=== PATIENT | female | born 1950 | race African-American/Black ===

== ENCOUNTER 2017-06-11 15:30 | Outpatient (POV) | payer OTHER, SELFPAY | END 2017-06-11 17:16 | disposition home or self-care (01) | PROVIDERS: Visit Provider Podiatrist | DX: M20.42 Other hammer toe(s) (acquired), left foot (principal); M20.41 Other hammer toe(s) (acquired), right foot; B35.1 Tinea unguium; M21.612 Bunion of left foot; M21.611 Bunion of right foot; L84 Corns and callosities | CPT/HCPCS: 99203; 11055; 73630 ==

== ENCOUNTER → 2017-10-08 14:05 | Outpatient (CLI) | payer MEDICARE, OTHER, SELFPAY ==
--- NOTE | 2017-10-08 14:31 | CT_ITS ---
LDCT EXAM: CT LUNG LOW DOSE WO CONTRAST COMPARISON: None HISTORY: Smoker currently. One pack per day for 30 years equal 30 pack-year history smoking. Patient asymptomatic. ORDERING PHYSICIAN: Jose G Campbell MD PATIENT AGE: 66 years TECHNIQUE: The exam was performed on a GE Light Speed [address] scanner using 3.0 mGy CTDI. A low dose helical CT CHEST was performed on a multi-detector scanner. All CT scans at the facility use one or more dose reduction, viz: automated exposure control; ma/kV adjustment per patient size (including targeted exams where dose is matched to indication; i.e. head); or iterative reconstruction technique. The LDCT was performed in a facility that meets the criteria for the screening program. Data regarding this exam was submitted to ACR which is an approved registry. The order for this exam indicates that it came as a result of a lung cancer screening counseling shard decision-making visit that included all the elements required of such a visit including smoking cessation. The radiologist interpreting this exam meets the CMS criteria for the LDCT lung cancer screening program. The exam is reported using the Lung-RADS classification scale and reported to the ACR registry. NOTE: This study was performed for the specific purposes of lung cancer screening and is not an alternative to diagnostic chest CT. RADIATION DOSE: CTDI vol(CT dose Index-volume) = 2.9mG DLP (Dose Length Product) = 91.32 mGcm FINDINGS: No Suspicious Lung Nodules. No areas of significant concern Indeterminate/Non-actionable Nodules(Category2): . RLL: There is a 3.6 mm nodule at the superior segment RLL axial slice 34, sagittal 22qq.. On the corresponding coronal slice 39 at has a relatively linear appearance which may reflect scarring. This most likely benign one year follow-up would be adequate. RUL. Tiny barely evident benign fissure nodule axial slice 37-sagittal 28 along the superior margin of minor fissure. Not of concern Left lung apex: 4.5 mm length x 2 mm fissure nodule extending from the anterior aspect of the major fissure superiorly at left apex. Can be followed one year LUNG PARENCHYMA Emphysema: Mild centrilobular emphysematous changes small bleb right middle lobe. No significant Airways disease: . . Minimal linear scarring & fibrotic changes at the inferior RML just anterior to the major fissure . OTHER ANATOMIC REGIONS Calcified mediastinal lymph nodes reflecting over elements disease. No significant hilar nor mediastinal adenopathy enlarged lymph nodes evident. Scattered small nodes are present in the mediastinum and amisha Pleura: Unremarkable Cardiac: Coronary artery disease calcification with possible stent at circumflex. Previous median sternotomy,. CABG Heart normal upper normal size. No pericardial effusion. Aorta normal caliber.. OTHER FINDINGS:. Generous left adrenal borderline enlargement. IMPRESSION:========= 1. No suspicious lung masses or lesions. No pneumonia. 2. Developing mild Emphysematous changes noted 3. Lung RADS Category: 2. Unimpressive small most likely benign nodular densities bilaterally. Follow-up in one year would be adequate 2. Other findings: CAD. CABG. [ Plump borderline enlarged left adrenal gland noted. RECOMMENDATIONS:======== 12 monthd LDCT follow-up
--- NOTE | 2017-10-08 14:31 | MM_ITS ---
MM Dig screening mamm BI w/CAD CAD Screening ORDERING PHYSICIAN : Jose G Campbell MD PATIENT AGE: 66 years GENDER: Female COMPARISON: Previous mammograms: April 2015, June 2012. INDICATION: Routine screening no hormones no new complaints Family history. Sister with breast cancer postmenopausal. Maternal cousin with breast cancer TECHNIQUE : Standard CC and MLO images were obtained. R2 CAD reviewed. FINDINGS: Moderately dense breast bilaterally but fairly homogeneous parenchymal pattern, with no significant findings. Prior studies are helpful and supportive stable breasts bilateral. CAD computer review highlights no new areas concern either.. IMPRESSION: ...... Stable bilateral mammogram with no significant new findings Moderately dense breast. BI-RADS Category: 1 Negative RECOMMENDED FOLLOW-UP: 1YR - 1 YEAR FOLLOW-UP (A letter has been sent to the patient regarding results of the study.)
--- NOTE | 2017-10-08 14:31 | XR_ITS ---
XR DEXA axial skeleton COMPARISON: None HISTORY: Patient is postmenopausal, current smoker, hypertensive. TECHNIQUE: DEXA scanning lumbar spine and bilateral hips FINDINGS: The areas BMD lumbar spine L1-L4 is 1.154 g/sq cm the T score -0.2. The total BMD left hip is 0.894 g centimeters square with a T score of -0.9 in the left femoral neck is 0.934 g centimeters square with a T score of -0.7. The total BMD right hip is T score of -0.4 in the right femoral neck is 0.872 g centimeters square with a T score of -1.2. IMPRESSION: Normal T score lumbar spine and left hip, mild osteopenia right hip. Consider follow-up study in approximately 2 years
== END ==
PROVIDERS: Family Provider Family Medicine; PCP Family Medicine; Visit Provider Family Medicine
DX: Z87.891 Personal history of nicotine dependence (principal); Z12.2 Encounter for screening for malignant neoplasm of respiratory organs; Z13.820 Encounter for screening for osteoporosis; M85.89 Other specified disorders of bone density and structure, multiple sites; Z12.31 Encounter for screening mammogram for malignant neoplasm of breast; N60.19 Diffuse cystic mastopathy of unspecified breast
CPT/HCPCS: 77067; 77080

== ENCOUNTER 2018-09-21 11:06 | Observation (INO) ==
--- NOTE | 2018-09-21 12:07 | Emergency Department Note ---
ED Disposition Clinical Impression: Hypertensive urgency, Non-compliance, Elevated troponin, Dizziness, nonspecific Disposition: Still a Patient Condition on Discharge: Fair Referrals: Jose G Campbell MD [Primary Care Provider] - - Critical Care Critical Care Time: No Attestation: On 09/21/18, the high probability of a clinically significant, sudden or life threatening deterioration of the following system(s) required my full and direct attention, intervention and personal management. The time I documented below is in addition to time spent performing reported procedures but includes the foll owing listed in this critical care notation. Medical Decision Making - Medical Records Medical records reviewed: Yes: I reviewed the patient's medical records. - Cesario Inquiry Pt receiving controlled substance: No Cesario was queried for this patient: No Vital Signs: 09/21/18 11:19 09/21/18 11:28 09/21/18 11:45 Temperature 97.5 F L Temperature Source Oral Pulse Rate [Orthostatic Lying Right] 78 Pulse Rate [Orthostatic Sitting Right] 79 Pulse Rate [Right Radial] 78 79 Respiratory Rate 18 Blood Pressure [Orthostatic Lying Right Arm] 206/109 H Blood Pressure [Orthostatic Sitting Right Arm] 205/114 H Blood Pressure [Right Arm] 206/114 H 214/115 H Blood Pressure Mean [Right Arm] 144 148 Blood Pressure Source [Right Arm] Automatic Cuff Automatic Cuff Blood Pressure Position [Right Arm] Sitting Sitting 02 Sat by Pulse Oximetry 100 96 Oxygen Delivery Method Room Air 09/21/18 12:09 09/21/18 12:41 09/21/18 13:00 Temperature Temperature Source Pulse Rate [Orthostatic Lying Right] Pulse Rate [Orthostatic Sitting Right] Pulse Rate [Right Radial] 68 56 L 60 Respiratory Rate 18 18 18 Blood Pressure [Orthostatic Lying Right Arm] Blood Pressure [Orthostatic Sitting Right Arm] Blood Pressure [Right Arm] 195/103 H 187/107 H 170/94 H Blood Pressure Mean [Right Arm] 133 133 119 Blood Pressure Source [Right Arm] Automatic Cuff Automatic Cuff Automatic Cuff Blood Pressure Position [Right Arm] Sitting Sitting Sitting 02 Sat by Pulse Oximetry 98 99 98 Oxygen Delivery Method Room Air Room Air Room Air 09/21/18 13:31 Temperature Temperature Source Pulse Rate [Orthostatic Lying Right] Pulse Rate [Orthostatic Sitting Right] Pulse Rate [Right Radial] 62 Respiratory Rate Blood Pressure [Orthostatic Lying Right Arm] Blood Pressure [Orthostatic Sitting Right Arm] Blood Pressure [Right Arm] 183/93 H Blood Pressure Mean [Right Arm] 123 Blood Pressure Source [Right Arm] Automatic Cuff Blood Pressure Position [Right Arm] Sitting 02 Sat by Pulse Oximetry 99 Oxygen Delivery Method Room Air - Lab Data Lab Results 09/21/18 12:35: WBC 5.2, RBC 5.37, Hgb 15.1, Hct 45.6, MCV 85.0, MCH 28.1, MCHC 33.1, RDW 14.0, Plt Count 250, MPV 7.4, Neut % (Auto) 52.9, Lymph % (Auto) 39.7, Metcalfe % (Auto) 4.1, Eos % (Auto) 2.6, Baso % (Auto) 0.7, Neut # (Auto) 2.8, Lymph # (Auto) 2.1, Metcalfe # (Auto) 0.2, Eos # (Auto) 0.1, Baso # (Auto) 0.0 09/21/18 12:35: PT 10.3, INR 1.00, APTT 26.4 09/21/18 12:35: Sodium 143, Potassium 3.4 L, Chloride 107, Carbon Dioxide 27, Anion Gap 12.4, BUN 13, Creatinine 0.80, Estimated Creat Clear 60, Estimated GFR 72, Est GFR ( Amer) 87, Glucose 103, Calcium 9.1, Total Bilirubin 0.5, AST 14 L, ALT 20, Alkaline Phosphatase 74, Troponin I 0.10 H, Total Protein 7.0, Albumin 3.5, Globulin 3.5 H, Albumin/Globulin Ratio 1.0 L Result diagrams: 09/21/18 12:35 09/21/18 12:35 Orders (Tests/Meds): ED MEDICATIONS Generic Name Dose Route Start Last Admin Trade Name Freq PRN Reason Stop Dose Admin Hydrochlorothiazide 12.5 mg 09/21/18 12:15 09/21/18 12:28 Hctz 12.5mg Capsule PO 10/21/18 12:14 12.5 mg DAILY NATALIA Administration ORDERS Category Date Time Status EKG Request [ECG Request by /Wilfredo] Stat Y 09/21/18 12:02 Ordered - CT Data CT Scan: Head Time Received: 12:12 Preliminary Findings: Abnormal Findings Narrative: IMPRESSION: Probable acute or acute and chronic inflammatory change left maxillary sinus, otherwise findings of mild age-appropriate cortical atrophy noted. I see no acute intracranial pathology. - ECG Data Tracing #1 Normal sinus rhythm 71/min, normal P wave and QRS normal ST segment nonspecific T wave changes in lead V6, no acute findings ECG initial impression date: 09/21/18 ECG initial impression time: 10:25 Medical Decision Narrative: IMPRESSION: Probable acute or acute and chronic inflammatory change left maxillary sinus, otherwise findings of mild age-appropriate cortical atrophy noted. I see no acute intracranial pathology .The SBP was reduced to 170 mmhg , patient felt better, surprisingly her troponin 0.10 , she had no chest pain, soa or palpiattion, her troponin was elevated in the past 0.07 . I spoke with the patient who was agreeable for admission will resume her baby aspirin and hold Lovenox to avoid brain he morrhage. I discussed with Dr Green who agreed to admit on behalf of Dr Campbell. Dizzy HPI - General Chief Complaint: Weakness Stated Complaint: off balance Time Seen by Provider: 09/21/18 11:25 Mode of Arrival: Ambulatory Source of Information: Patient, Relative Limitations: No Limitations Description of Symptoms (Recalled from ER Triage Doc. by RN): Pt reports she woke up feeling "off balance" intermittently this morning and jaky legs feeling weak, pt reports she feels "off balance" when she moves her head up and down. Pt reports she has had some feeling of R ear fullness intermittently this morning also. Pt denies headache, nausea, and pain. - History of Present Illness HPI Narrative: 67 years old -Finnish female smoker with history of CAD, s/p CABG, hypertension on hydrochlorothiazide and Coreg 12.5 mg twice daily. She has been out of her hydrochlorothiazide for the past 3-4 days. Today she woke up at 8:30 AM, while in the bathroom bending forward she felt dizzy when she attempted to stand she felt weak in both lower extremities. She became concerned and arrived to the ED with a systolic blood pressure of 195/103 mmHg manually, she denies having chest pain shortness of breath palpitations, she denies having weakness numbness tingling involving the upper extremities or the lower extremities as the symptoms has resolved.She denies having nausea vomiting diarrhea she denies having dysuria hematuria or frequency. Her dizziness is improving. She has not taking her Coreg this morning. MD complaint: dizziness Onset (ago): hour(s) Time: 08:30 Timing: sudden onset Description: lightheadedness History of similar episodes: No History of trauma: No Severity: mild Relieving factors: remaining still Exacerbating factors: movement Associated symptoms: weakness, other - Related Data Home Medications Medication Instructions Recorded Confirmed Aspirin [Aspir 81] 81 mg PO DAILY 10/08/17 09/21/18 Carvedilol [Carvedilol 12.5mg Tab] 12.5 mg PO BID 10/08/17 09/21/18 hydroCHLOROthiazide 12.5 mg PO DAILY 10/08/17 09/21/18 [Hydrochlorothiazide 12.5mg Tab] Pravastatin Sodium 80 mg PO DAILY 02/19/18 09/21/18 Losartan Potassium 50 mg PO DAILY 02/20/18 09/21/18 Vit B12/Folic Acid/B6/Aa15 1 each PO DAILY 09/10/18 09/21/18 [Glycotrol Capsule] Vit D3-Vit K/Berberine/Hops 1 each PO DAILY 09/10/18 09/21/18 [Ostera Tablet] Allergies Allergy/AdvReac Type Severity Reaction Status Date / Time No Known Allergies Allergy Verified 06/29/18 19:40 [facility] History - Hepatitis A Screen Drug use history?: No High risk sexual behaviors?: No History of sexually transmitted infection?: No Currently employed?: No Childcare worker?: No Do you have indoor plumbing?: Yes Do you have electricity?: Yes Attestation statement:: This patient has been screened for Hepatitis A risk factors. I have reviewed the patient's past medical history: Yes Medical History: Reports:: Coronary Artery Disease, Hyperlipidemia, Hypertension, Myocardial Infarction (2009) Denies:: Diabetes Mellitus Type 1, Diabetes Mellitus Type 2, Internal Pacemaker, Lung Disease, Seizures Other Surgeries: Yes: CABG, Cardiac Catheterization, Cardiac Surgery, Coronary Stent, Open Heart Surgery, Tubal Ligation. No: Pacemaker Amputation: No Fractures: No - Social History Smoking Status: Current every day smoker Tobacco Type: cigarettes # Packs/Day (cigarettes): 1 Alcohol Intake: never Occupational Status: employed - Psychiatric History Expresses thoughts of harming self/others: None Suicide Plan Description: No Plan ROS Obtained: Yes All systems reviewed & no additional complaints Physical Exam - General General appearance: alert, in no apparent distress - Head Head exam: atraumatic, normocephalic, normal inspection, other (Patient had symmetrical face. No speech difficulty. ) - Eye Eye exam: Present: normal appearance, PERRL, EOMI. Absent: scleral icterus, jaundice, nystagmus - ENT ENT exam: Present: normal exam, normal oropharynx, mucous membranes moist, TM's normal bilaterally, normal external ear exam - Neck Neck exam: Present: normal inspection, full ROM, trachea midline. Absent: meningismus, lymphadenopathy - Chest Chest inspection: Present: normal inspection, symmetric chest wall rise. Absent: tenderness - Respiratory Respiratory exam: Present: normal lung sounds bilaterally. Absent: respiratory distress - Cardiovascular Cardiovascular exam: Present: regular rate, normal rhythm. Absent: JVD - Abdominal Exam Abdominal exam: Present: soft, normal bowel sounds. Absent: distention, tenderness, guarding, rebound, rigidity - External exam: Present: normal external exam - Extremities Exam Extremities exam: Present: normal inspection, full ROM, normal capillary refill. Absent: tenderness, pedal edema, joint swelling, calf tenderness - Back Exam Back exam: Present: normal inspection. Absent: tenderness, CVA tenderness (R), CVA tenderness (L) - Neurological Exam Neurological exam: Present: alert, oriented X3, CN II-XII intact, normal gait, motor sensory deficit, reflexes normal, other (The patient had no nystagmus, symmetrical face, no dysarthria or dysphonia, intact finger to nose and heel to holloway test, negative rombergism, walked tandem, motor power in the lower extremity was 5/5, Babinski was upgoing, no focal deficits. ) - Psychiatric Psychiatric exam: Present: normal affect, normal mood - Skin Skin exam: Present: warm, dry, intact, normal color - Lymphatic Lymphatic Findings: no adenopathy
[2018-09-21 12:42] LABS: Basophils % 0.7 % (0.1-2.0); Eosinophils # 0.1 K/mm3 (0.0-0.4); Eosinophils % 2.6 % (0.1-12.0); Hematocrit 45.6 % (37.0-47.0); Hemoglobin 15.1 g/dL (12.2-16.2); Lymphocytes # 2.1 K/mm3 (0.7-4.5); Lymphocytes % 39.7 % (10-50); Mean Corpuscular HGB Conc 33.1 g/dL (31.8-35.4); Mean Corpuscular Hemoglobin 28.1 pg (27.0-31.2); Mean Platelet Volume 7.4 fl (7.4-10.4); Monocytes # 0.2 K/mm3 (0.1-1.0); Monocytes % 4.1 % (1.7-9.3); Neutrophils # 2.8 K/mm3 (1.8-7.8); Neutrophils % 52.9 % (37.0-80.0); Platelet Count 250 K/mm3 (142-424); Red Blood Count 5.37 M/mm3 (4.20-5.40); White Blood Count 5.2 K/mm3 (4.8-10.8)
[2018-09-21 12:52] LABS: Activated Partial Thrombo Time 26.4 seconds (23.6-34.0); Prothrombin Time 10.3 seconds (9.4-11.8)
[2018-09-21 12:57] LABS: Albumin Level 3.5 gm/dL (3.4-5.0); Anion Gap 12.4 mEq/L (5-15); Bilirubin,Total 0.5 mg/dL (0.2-1.0); Calcium 9.1 mg/dL (8.5-10.1); Globulin 3.5 gm/dl (1.3-3.2); Potassium 3.4 mmoL/L (3.5-5.1)
--- NOTE | 2018-09-21 14:52 | Pharmacy Consult Notes ---
[facility] Pharmacy VTE Monitoring - Patient Demographics Admission date: 09/21/18 Report Date: 09/21/18 Time: 14:52 Allergies/Adverse Reactions: Patient Allergies No Known Allergies Allergy (Verified 06/29/18 19:40) Height: 1.6 m Weight: 68.039 kg Patient Problems: Current Active Problems Hypertensive urgency (Acute) Non-compliance (Acute) Elevated troponin (Acute) Dizziness, nonspecific (Acute) - VTE Risk Labs: VTE Related Lab Results Hgb 15.1 g/dL (12.2-16.2) 09/21/18 12:35 Hct 45.6 % (37.0-47.0) 09/21/18 12:35 Plt Count 250 K/mm3 (142-424) 09/21/18 12:35 PT 10.3 seconds (9.4-11.8) 09/21/18 12:35 INR 1.00 (0.9-1.1) 09/21/18 12:35 APTT 26.4 seconds (23.6-34.0) 09/21/18 12:35 BUN 13 mg/dL (7-18) 09/21/18 12:35 Creatinine 0.80 mg/dL (0.55-1.02) 09/21/18 12:35 Estimated Creat Clear 60 mL/min (50-200) 09/21/18 12:35 - Prophylaxis VTE Prophylaxis Ordered?: Yes Types of VTE Prophylaxis: TEDS Knee High Location of Applied Device: Bilateral Lower Extremeties - VTE Diagnosis Confirmed Treatment or plan recommended: Continue Current Treatment
--- NOTE | 2018-09-21 17:54 | History & Physical Report ---
*Admission Date: 09/21/18 *Chief complaint: Dizziness *History of present illness: Ms. Grider is a 67-year-old -[place] female with a history of hypertension, coronary artery disease, hyperlipidemia status post coronary artery bypass grafting and previous stents. She admits to noncompliance with taking her antihypertensive medications over the last several days and when she awoke this morning she felt dizzy which she describes as a lightheaded feeling and no true vertigo. This was associated with weakness in her legs. No complaints of chest pain, palpitations, shortness of breath or headache. She does note some sinus pressure. She presented to the emergency room with these complaints. She was immediately noted to be hypertensive. CT scan of the head showed only some chronic left maxillary sinusitis. Laboratory data showed normal CBC and electrolytes however her initial troponin was mildly elevated at 0.1. EKG showed no acute changes. She was given a dose of her carvedilol and hydrochlorothiazide in the emergency room and her blood pressure improved but has not returned to normal. Because of the borderline elevated troponin and persistent elevation of her blood pressure she has been admitted for further evaluation and treatment. At the time of my exam she states she is feeling somewhat better. Her dizziness has improved but not resolved. Leg weakness has resolved. She still notes some pressure in her sinuses. No chest pain or palpitations. [facility] History Medical History: Reports:: Coronary Artery Disease, Hyperlipidemia, Hypertension, Myocardial Infarction (2009) Denies:: Cancer, Diabetes Mellitus Type 1, Diabetes Mellitus Type 2, Internal Pacemaker, Lung Disease, MRSA, Seizures *Have you ever received a pneumonia vaccine?: Yes *Have you received a flu vaccine this season?: No Other Medical History: Reports: Sinus Problems Other Surgeries: Yes: CABG, Cardiac Catheterization, Cardiac Surgery, Coronary Stent, Open Heart Surgery, Tubal Ligation. No: Pacemaker Amputation: No Fractures: No - *Social History Educational Level: Attended College Smoking Status: Current some day smoker Tobacco Type: cigarettes # Packs/Day (cigarettes): 1 Alcohol Intake: never *Occupational Status:: employed Housing: house Household Members: children *Travel in the last 8 weeks: None - Psychiatric History Expresses thoughts of harming self/others: None Suicide Plan Description: No Plan Family Hx:: Cancer, Coronary Artery Disease, Diabetes, Heart Attack, Hyperlipidemia, Hypertension, Stroke Review of Systems - Constitutional Denies fatigue, Denies headache(s), Denies malaise - Eyes Denies blurry vision, Denies change in vision, Denies double vision - ENT Comments: negative except as noted in HPI - *Cardiovascular Comments: See HPI - *Respiratory Denies cough, Denies shortness of breath - *Gastrointestinal Denies abdominal pain, Denies heartburn, Denies nausea, Denies vomiting - *Genitourinary Denies painful urination - *Musculoskeletal Denies joint pain, Denies joint swelling - Integumentary/Breasts Denies rash - *Neurologic Comments: negative except as noted in HPI - Psychiatric Denies anxiety, Denies depression - Endocrine Denies cold intolerance, Denies excessive sweating - Hematologic/Lymphatic Denies easy bleeding Meds Home Medications Medication Instructions Recorded Confirmed Type Aspirin [Aspir 81] 81 mg PO DAILY 10/08/17 09/21/18 History Carvedilol [Carvedilol 12.5mg Tab] 12.5 mg PO BID 10/08/17 09/21/18 History hydroCHLOROthiazide 12.5 mg PO DAILY 10/08/17 09/21/18 History [Hydrochlorothiazide 12.5mg Tab] Pravastatin Sodium 80 mg PO DAILY 02/19/18 09/21/18 History Vit B12/Folic Acid/B6/Aa15 1 each PO DAILY 09/10/18 09/21/18 History [Glycotrol Capsule] Vit D3-Vit K/Berberine/Hops 1 each PO DAILY 09/10/18 09/21/18 History [Ostera Tablet] Losartan Potassium 50 mg PO DAILY 09/21/18 09/21/18 History Allergies Allergy/AdvReac Type Severity Reaction Status Date / Time No Known Allergies Allergy Verified 06/29/18 19:40 Exam Vital signs and Labs for Last 24 Hours: Temp Pulse Resp BP Pulse Ox 98.2 F 74 16 198/103 H 97 09/21/18 17:00 09/21/18 17:00 09/21/18 17:00 09/21/18 17:00 09/21/18 17:00 Laboratory Results - last 24 hr 09/21/18 12:35: WBC 5.2, RBC 5.37, Hgb 15.1, Hct 45.6, MCV 85.0, MCH 28.1, MCHC 33.1, RDW 14.0, Plt Count 250, MPV 7.4, Neut % (Auto) 52.9, Lymph % (Auto) 39.7, Steele % (Auto) 4.1, Eos % (Auto) 2.6, Baso % (Auto) 0.7, Neut # (Auto) 2.8, Lymph # (Auto) 2.1, Steele # (Auto) 0.2, Eos # (Auto) 0.1, Baso # (Auto) 0.0 09/21/18 12:35: PT 10.3, INR 1.00, APTT 26.4 09/21/18 12:35: Sodium 143, Potassium 3.4 L, Chloride 107, Carbon Dioxide 27, Anion Gap 12.4, BUN 13, Creatinine 0.80, Estimated Creat Clear 60, Estimated GFR 72, Est GFR ( Amer) 87, Glucose 103, Calcium 9.1, Total Bilirubin 0.5, AST 14 L, ALT 20, Alkaline Phosphatase 74, Troponin I 0.10 H, Total Protein 7.0, Albumin 3.5, Globulin 3.5 H, Albumin/Globulin Ratio 1.0 L 09/21/18 16:57: Troponin I 0.10 H I & O for Last 24 hours: Intake & Output 09/19/18 09/20/18 09/21/18 09/22/18 11:59 11:59 11:59 11:59 Intake Total 600 / 600 Balance 600 / 600 Weight 150 lb 147 lb 8 oz Narrative: She is sitting up in bed and appears in no acute distress. HEENT is unremarkable. Neck is supple with no masses, thyromegaly, or bruits. Chest with coarse breath sounds and scattered rhonchi. Heart is regular with no murmurs or ectopy. Abdomen is soft and nondistended with no unusual masses or tenderness. Extremities no edema. Assessment and Plan (1) Hypertensive urgency Current visit: Yes Status: Acute Category: Medical Code(s): I16.0 - Hypertensive urgency (2) Elevated troponin Current visit: Yes Status: Acute Category: Medical Code(s): R74.8 - Abnormal levels of other serum enzymes (3) Noncompliance with medication regimen Current visit: Yes Status: Acute Category: Medical Code(s): Z91.14 - Patient's other noncompliance with medication regimen (4) History of ASCVD Current visit: Yes Status: Acute Category: Medical Code(s): Z86.79 - Personal history of other diseases of the circulatory system (5) HBP (high blood pressure) Current visit: Yes Status: Acute Category: Medical Code(s): I10 - Essential (primary) hypertension (6) Hyperlipemia Current visit: Yes Status: Acute Category: Medical Code(s): E78.5 - Hyperlipidemia, unspecified (7) Tobacco abuse disorder Current visit: Yes Status: Acute Category: Medical Code(s): Z72.0 - Tobacco use - Assessment and plan all Dx Assessment and Plan for all problems:: She is admitted for serial enzymes and monitoring of her BP. She is currently asymptomatic. Additional workup and treatment will be as indicated by her hospital course.
--- NOTE | 2018-09-22 08:22 | Progress Note ---
Internal Medicine - PN: Subj Interval history: She rested well last night and feels better this morning. She still complains of some sinus pressure. Her blood pressure has steadily come down to normal through the night. She denies dizziness or weakness in her legs. Exam Vital signs and Labs for Last 24 Hours: Temp Pulse Resp BP Pulse Ox 98.1 F 70 18 115/70 96 09/22/18 07:55 09/22/18 07:55 09/22/18 07:55 09/22/18 07:55 09/22/18 07:55 Laboratory Results - last 24 hr 09/21/18 12:35: WBC 5.2, RBC 5.37, Hgb 15.1, Hct 45.6, MCV 85.0, MCH 28.1, MCHC 33.1, RDW 14.0, Plt Count 250, MPV 7.4, Neut % (Auto) 52.9, Lymph % (Auto) 39.7, [place] % (Auto) 4.1, Eos % (Auto) 2.6, Baso % (Auto) 0.7, Neut # (Auto) 2.8, Lymph # (Auto) 2.1, [place] # (Auto) 0.2, Eos # (Auto) 0.1, Baso # (Auto) 0.0 09/21/18 12:35: PT 10.3, INR 1.00, APTT 26.4 09/21/18 12:35: Sodium 143, Potassium 3.4 L, Chloride 107, Carbon Dioxide 27, Anion Gap 12.4, BUN 13, Creatinine 0.80, Estimated Creat Clear 60, Estimated GFR 72, Est GFR ( Amer) 87, Glucose 103, Calcium 9.1, Total Bilirubin 0.5, AST 14 L, ALT 20, Alkaline Phosphatase 74, Troponin I 0.10 H, Total Protein 7.0, Albumin 3.5, Globulin 3.5 H, Albumin/Globulin Ratio 1.0 L 09/21/18 16:57: Troponin I 0.10 H 09/21/18 23:00: Troponin I 0.09 H I & O for Last 24 hours: Intake & Output 09/19/18 09/20/18 09/21/18 09/22/18 11:59 11:59 11:59 11:59 Intake Total 2580 / 2580 Balance 2580 / 2580 Weight 150 lb 147 lb 8 oz Narrative: She is alert and oriented and in no distress. Chest reveals coarse breath sounds with scattered rhonchi. Heart is regular with no ectopy. Extremities no edema. Assessment and Plan (1) Hypertensive urgency Status: Acute Category: Medical Code(s): I16.0 - Hypertensive urgency (2) Elevated troponin Status: Acute Category: Medical Code(s): R74.8 - Abnormal levels of other serum enzymes (3) Noncompliance with medication regimen Status: Acute Category: Medical Code(s): Z91.14 - Patient's other noncompliance with medication regimen (4) History of ASCVD Status: Acute Category: Medical Code(s): Z86.79 - Personal history of other diseases of the circulatory system (5) HBP (high blood pressure) Status: Acute Category: Medical Code(s): I10 - Essential (primary) hypertension (6) Hyperlipemia Status: Acute Category: Medical Code(s): E78.5 - Hyperlipidemia, unspecified (7) Tobacco abuse disorder Status: Acute Category: Medical Code(s): Z72.0 - Tobacco use - Assessment and plan all Dx Assessment and Plan for all problems:: Blood pressure has normalized with resumption of her maintenance medications. She is stable for discharge home. She has prescriptions at home and compliance is reinforced. She will follow-up for recheck in 3-5 days.
--- NOTE | 2018-09-22 22:42 | Discharge Summary ---
General - General Admission date:: 09/21/18 Discharge date: 09/22/18 HPI HPI: Ms. Grider is a 67-year-old -[place] female with a history of hypertension, coronary artery disease, hyperlipidemia status post coronary artery bypass grafting and previous stents. She admits to noncompliance with taking her antihypertensive medications over the last several days and when she awoke this morning she felt dizzy which she describes as a lightheaded feeling and no true vertigo. This was associated with weakness in her legs. No complaints of chest pain, palpitations, shortness of breath or headache. She does note some sinus pressure. She presented to the emergency room with these complaints. She was immediately noted to be hypertensive. CT scan of the head showed only some chronic left maxillary sinusitis. Laboratory data showed normal CBC and electrolytes however her initial troponin was mildly elevated at 0.1. EKG showed no acute changes. She was given a dose of her carvedilol and hydrochlorothiazide in the emergency room and her blood pressure improved but has not returned to normal. Because of the borderline elevated troponin and persistent elevation of her blood pressure she has been admitted for further evaluation and treatment. At the time of my exam she states she is feeling somewhat better. Her dizziness has improved but not resolved. Leg weakness has resolved. She still notes some pressure in her sinuses. No chest pain or palpitations. Hospital Course Hospital Course: The patient was admitted for serial enzymes and monitoring of her blood pressure. She was asymptomatic by the time she was evaluated by Dr. Green. The patient rested well and felt much better by the next day. She still complained of some sinus pressure. Her blood pressure steadily came down to normal throughout the night and she denied any dizziness or weakness in her legs. Her troponin did decrease. She was stable to be discharged home. She had prescriptions at home and compliance was reinforced. She will follow-up in the office for recheck in 3-5 days. Objective Vital signs: Temp Pulse Resp BP Pulse Ox 98.1 F 70 18 115/70 96 09/22/18 07:55 09/22/18 07:55 09/22/18 07:55 09/22/18 07:55 09/22/18 07:55 Narrative: She is sitting up in bed and appears in no acute distress. HEENT is unremarkable. Neck is supple with no masses, thyromegaly, or bruits. Chest with coarse breath sounds and scattered rhonchi. Heart is regular with no murmurs or ectopy. Abdomen is soft and nondistended with no unusual masses or tenderness. Extremities no edema. Results Labs on day of discharge: Labs from last 24 hours 09/21/18 23:00 Troponin I 0.09 H DS: Diagnosis - Discharge Diagnosis (1) Hypertensive urgency Status: Acute (2) Elevated troponin Status: Acute (3) Noncompliance with medication regimen Status: Acute (4) History of ASCVD Status: Acute (5) HBP (high blood pressure) Status: Acute (6) Hyperlipemia Status: Acute (7) Tobacco abuse disorder Status: Acute Discharge Plan - Patient Discharge Instructions Patient Instructions: Cardiac Troponin, Hypertension (Alternative Therapy), High Blood Pressure - Follow up Plan Follow up with: Ebony Beckham MD [Staff Physician] - (f/u in 3-5 days) Disposition: Home, Self-Nursing Home Medications: Home Medications Medication Instructions Recorded Confirmed Type Aspirin [Aspir 81] 81 mg PO DAILY 10/08/17 09/21/18 History Carvedilol [Carvedilol 12.5mg Tab] 12.5 mg PO BID 10/08/17 09/21/18 History hydroCHLOROthiazide 12.5 mg PO DAILY 10/08/17 09/21/18 History [Hydrochlorothiazide 12.5mg Tab] Pravastatin Sodium 80 mg PO DAILY 02/19/18 09/21/18 History Vit B12/Folic Acid/B6/Aa15 1 each PO DAILY 09/10/18 09/21/18 History [Glycotrol Capsule] Vit D3-Vit K/Berberine/Hops 1 each PO DAILY 09/10/18 09/21/18 History [Ostera Tablet] Losartan Potassium 50 mg PO DAILY 09/21/18 09/21/18 History Prescriptions/Medication Reconciliation: Continue hydroCHLOROthiazide [Hydrochlorothiazide 12.5mg Tab] 12.5 mg PO DAILY Carvedilol [Carvedilol 12.5mg Tab] 12.5 mg PO BID Pravastatin Sodium 80 mg PO DAILY Vit D3-Vit K/Berberine/Hops [Ostera Tablet] 1 each PO DAILY Vit B12/Folic Acid/B6/Aa15 [Glycotrol Capsule] 1 each PO DAILY Losartan Potassium 50 mg PO DAILY Aspirin [Aspir 81] 81 mg PO DAILY
== END 2018-09-22 10:43 | disposition home or self-care (01) ==
LOC: ER 11:06 → 2ND 11:06
PROVIDERS: ADMIT Family Medicine; ATTEND Family Medicine
CPT/HCPCS: 36415; 70450; 80053; 84484; 85025; 85610; 85730; 93005; 99285; G0378

== ENCOUNTER → 2018-11-05 11:05 | Outpatient (CLI) | payer MEDICARE, SELFPAY ==
--- NOTE | 2018-11-05 11:06 | NM_ITS ---
CARDIOLITE SPECT MYOCARDIAL PERFUSION LEXISCAN, REST AND STRESS: History: Coronary artery disease, bypass surgery, hypertension, hyperlipidemia, tobacco use, family history. Procedure: Patient exercised on Sebastian protocol 5 minutes and 45 seconds, resting heart rate was 66 bpm, resting blood pressure 176/91, with exercise maximum heart rate achieved was 1 22 bpm which is equal to 79% of the maximum predicted heart rate and a blood pressure was 280 /100. The patient has adequate exercise capacity achieved 7 mets of workload on treadmill, the blood pressure response to exercise was hypertensive, patient did not achieve the target heart rate.: Electrocardiogram: Resting electrocardiogram showed sinus rhythm nonspecific ST-T changes with exercise there is additional millimeters ST segment depression noted from the baseline EKG. Of the exercise Myoview is nondiagnostic due to baseline abnormal EKG. Cardiac stress and resting SPECT images: Cardiac stress and resting SPECT images were obtained using technetium 99 Myoview 30.9 mCi stress and 10.1 mCi at rest. Gated SPECT further analysis of segmental wall motion and calculation of the ejection fraction also done. Cardiac Stress and resting SPECT images show reversible ischemia involving the anteroapical wall, there are ejection fraction is 48% no wall motion abnormality. Right ventricle is normal size and contractility. Conclusion: 1. The EKG portion of the exercise Myoview is nondiagnostic baseline abnormal EKG, patient has adequate exercise capacity achieved 7mets of workload on treadmill, the blood pressure response to exercise was hypertensive, there was no exercise-induced chest discomfort, test was started shortness of breath 2. Scintigraphic evidence of reversible involving the anteroapical wall, either derived ejection fraction is 48% with no regional wall motion abnormality, right ventricle is normal size and contractility. 3. Abnormal exercise Myoview study.
--- NOTE | 2018-11-05 11:06 | CA_ITS ---
PROCEDURE: 2-D M-mode and color Doppler study INDICATIONS FOR THE TEST: Chest pain X COPD Heart Murmur Tobacco SmokingX Palpitations Fatigue Syncope Edema HypertensionXDiabetes Mellitus Rheumatic Fever SOB PERDOMO Obesity HyperlipidemiaX Family History HD Additional History ABN EKG PATIENT INFORMATION HEIGHT: 63 WEIGHT:150 GENDER: Female B/P:138/80 2-D/M-MODE INTERPRETATION: 2-D MEASUREMENTS OBSERVED VALUES IN CMS Right Ventricular Dimension (RVDd) 1.2 Interventricular Septum (Thickness)(IVsd) 1.1 Left Ventricular Internal Dimensions(LVIDd) 4.4 Left Ventricular Posterior Wall (Thickness)(LVPWd) .8 Aortic Root 3.0 Aortic Cusp Separation 1.4 Left Atrial Dimensions (LAD) 2.5 2D 1. Left atrium is mildly enlarged, left ventricle is normal size, mild concentric left ventricular hypertrophy, visually estimated ejection fraction 55% with no regional wall motion abnormality. 2. The right atrium and right ventricle are normal size and contractility. 3. The aortic valve is minimally thickened and fibrosed. 4. The mitral and tricuspid valve leaflets are minimally thickened. 5. The pulmonic valve is poorly visualized. 6. No significant pericardial effusion noted DOPPLER INTERROGATION: Doppler interrogation of the aortic, mitral and tricuspid valvular presence of mild mitral and tricuspid regurgitation, tricuspid regurgitation jet velocity is inadequate for calculation of the right ventricular systolic pressure, grade 1 diastolic dysfunction seen with tissue Doppler evidence of raised left atrial pressure. CONCLUSION: 1. Mildly enlarged left atrium, normal left ventricular size, mild concentric left ventricular hypertrophy, visually estimated ejection fraction 55% with no regional wall motion abnormality, grade 1 diastolic dysfunction seen with tissue Doppler evidence of raised left atrial pressure. 2. Mild mitral and tricuspid regurgitation 3. No significant pericardial effusion noted.
--- NOTE | 2018-11-05 13:22 | HMH.ITSHM ---
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 []VITAMIN B HYDROCHLOROTHIAZIDE VITAMIN D3 PRAVASTATIN LOSARTAN CARVEDILOL ASA
== END ==
PROVIDERS: PCP Family Medicine; Visit Provider Internal Medicine
DX: I25.810 Atherosclerosis of coronary artery bypass graft(s) without angina pectoris; E78.5 Hyperlipidemia, unspecified; I10 Essential (primary) hypertension; I25.2 Old myocardial infarction; R94.31 Abnormal electrocardiogram [ECG] [EKG]; Z72.0 Tobacco use; Z95.1 Presence of aortocoronary bypass graft
CPT/HCPCS: 78452; 93017; 93306; A9502

== ENCOUNTER 2018-12-05 08:17 | Day surgery (SDC) | payer MEDICARE, SELFPAY ==
[2018-12-05] VITALS (26 sets, daily range): BP systolic 108–167; BP diastolic 63–96; PULSE 60–77; RESP 16–18; O2SAT 92–100; BMI 26.0
--- NOTE | 2018-12-05 | IR_ITS ---
CARDIAC CATHETERIZATION DATE OF CATHETERIZATION:12/05/2018 11:34 AM PROCEDURES: 1. Left heart catheterization 2. Left ventriculogram 3. Selective coronary angiogram 4. Left internal mammary angiography 5. Selective engagement of the saphenous vein graft to the diagonal artery 6. Selective engagement of the saphenous vein graft to the right coronary artery/posterior descending artery INDICATION FOR TEST: 1. Coronary artery disease 2. History of coronary artery bypass surgery at 3. Abnormal Myoview with anterior apical ischemia 4. Angina pectoris Informed consent was obtained prior to the procedure. COMPLICATIONS: None ESTIMATED BLOOD LOSS: Less than 10 ml. TECHNIQUE: One percent lidocaine used to anesthetize the right groin. The right femoral artery was accessed via the Seldinger technique and a 5 Slovak sheath was placed in the right femoral artery. A JL 4, JR4 catheter were used to perform left heart catheterization, left ventriculogram selective coronary angiography as well as selective engagement of the 2 vein grafts and nonselective engagement of the left internal mammary artery. At the end of the procedure the patient was transferred to the postop holding area in stable condition for sheath removal ANGIOGRAPHIC RESULTS: 1. The left main artery normal 2. The left anterior descending artery is proximally normal and then occluded after the first septal revenue agent 3. The circumflex artery is a nondominant vessel and has a mid vessel 90% stenosis supplying a solitary 2 mm obtuse marginal artery 4. The right coronary artery has severe 80% and 90% proximal and mid vessel stenoses and then occluded distally 5. The GARCIA ventriculogram reveals preserved at 55% 6. The left ventricular end-diastolic pressure 15 mmHg 7. The left internal mammary artery iswidely patent to the mid LAD 8. The saphenous vein graft to the diagonal artery is a small graft approximately 2 mm in diameter however the diagonal artery itself is slightly less than 2 mm in diameter and a small vessel. The proximal segment of the saphenous vein graft has a 60% stenosis however normal flow is present 9. The saphenous vein graft to the posterior descending artery is a widely patent graft free of disease IMPRESSION: 1. Severe disease in a circumflex artery supplying a moderate sized 2 mm obtuse marginal artery 2. Moderate to severe disease in a small saphenous vein graft supplying a small first diagonal artery 3. Patent TAFOYA to the LAD 4. Widely patent large saphenous vein graft to a large dominant right coronary artery/posterior descending artery 5. Preserved ejection fraction 6. Mildly elevated LVEDP PLAN: 1. I prefer medical management at this time. It does appear the patient is experiencing angina pectoris. During cardiac catheterization her systolic blood pressure was 170 mmHg while asleep. I believe we can manage her medically with better control blood pressure and maximizing antianginal medications 2. If patient develops recalcitrant angina pectoris we could proceed with right radial access and stent the saphenous vein graft to the diagonal artery as well as the squaxin circumflex artery. Again this stenting would only BE recommended if patient has recalcitrant angina refractory to standard medical therapy 3. Aggressive risk factor modification
[2018-12-05 09:15] LABS: Basophils % 0.5 % (0.1-2.0); Eosinophils # 0.1 K/mm3 (0.0-0.4); Eosinophils % 2.3 % (0.1-12.0); Hemoglobin 14.8 g/dL (12.2-16.2); Lymphocytes # 2.1 K/mm3 (0.7-4.5); Lymphocytes % 40.9 % (10-50); Mean Corpuscular HGB Conc 34.3 g/dL (31.8-35.4); Mean Corpuscular Volume 81.6 fl (81-99); Mean Platelet Volume 7.7 fl (7.4-10.4); Monocytes # 0.2 K/mm3 (0.1-1.0); Monocytes % 4.5 % (1.7-9.3); Neutrophils # 2.6 K/mm3 (1.8-7.8); Neutrophils % 51.7 % (37.0-80.0); Platelet Count 222 K/mm3 (142-424); Red Blood Count 5.28 M/mm3 (4.20-5.40); Red Cell Distribution Width 13.7 % (11.5-17.5)
[2018-12-05 09:53] LABS: Anion Gap 12.4 mEq/L (5-15); Blood Urea Nitrogen 15 mg/dL (7-18); Calcium 8.8 mg/dL (8.5-10.1); Carbon Dioxide 27 mmol/L (21.0-32.0); Chloride 105 mmol/L (98-107); Creatinine Clearance Estimated 58 mL/min (50-200); Creatinine,Serum 0.98 mg/dL (0.55-1.02); Estimated Glomerular Filt Rate 57 ml/min (>60); GFR (African American) 69 ML/MIN (>60); Glucose 107 mg/dL (74-106); Potassium 3.4 mmoL/L (3.5-5.1); Sodium 141 mmol/L (136-145)
== END 2018-12-05 15:10 | disposition home or self-care (01) ==
LOC: CATHLAB 08:20
PROVIDERS: PCP Family Medicine; Visit Provider Internal Medicine
DX: I25.118 Atherosclerotic heart disease of native coronary artery with other forms of angina pectoris (principal); Z95.1 Presence of aortocoronary bypass graft; I25.2 Old myocardial infarction; Z72.0 Tobacco use; I50.30 Unspecified diastolic (congestive) heart failure; Z82.49 Family history of ischemic heart disease and other diseases of the circulatory system; Z79.899 Other long term (current) drug therapy; I11.0 Hypertensive heart disease with heart failure
CPT/HCPCS: 80048; 85025; 93459; 99152; C1725; C1769; C1894; J1644; Q9967

== ENCOUNTER → 2018-12-26 13:01 | Outpatient (CLI) | payer MEDICARE, SELFPAY | PROVIDERS: PCP Family Medicine; Visit Provider Nurse Practitioner Family | DX: R06.83 Snoring (principal); R40.0 Somnolence; G47.33 Obstructive sleep apnea (adult) (pediatric) | CPT/HCPCS: G0399 ==

== ENCOUNTER → 2019-01-02 09:03 | Outpatient (CLI) | payer MEDICARE, SELFPAY ==
[2019-01-02 11:04] LABS: Anion Gap 14.5 mEq/L (5-15); Blood Urea Nitrogen 16 mg/dL (7-18); Calcium 8.7 mg/dL (8.5-10.1); Carbon Dioxide 28 mmol/L (21.0-32.0); Chloride 105 mmol/L (98-107); Estimated Glomerular Filt Rate 50 ml/min (>60); GFR (African American) 60 ML/MIN (>60); Glucose 120 mg/dL (74-106); Potassium 3.5 mmoL/L (3.5-5.1); Sodium 144 mmol/L (136-145)
== END ==
PROVIDERS: Visit Provider Nurse Practitioner Family
DX: I10 Essential (primary) hypertension (principal); I25.810 Atherosclerosis of coronary artery bypass graft(s) without angina pectoris
CPT/HCPCS: 36415; 80048

== ENCOUNTER → 2020-01-27 07:59 | Outpatient (CLI) | payer MEDICARE, SELFPAY ==
--- NOTE | 2020-01-27 08:12 | XR_ITS ---
PROCEDURE: XR DEXA AXIAL SKELETON CLINICAL HISTORY: OSTEOPENIA OF RT HIP COMPARISON: DEXAAX XR DEXA axial skeleton from 10/08/2017 FINDINGS: The right hip BMD is 0.740 with a t-score of -1.0. The left hip BMD is 0.832 with a t-score of -0.9. The lumbar spine BMD is 0.978 with a t-score of -0.6. IMPRESSION: This patient is considered normal according to the World Health Organization criteria. Fracture risk is low. Based on these results of follow-up exam is recommended in 2 years. Previous exam demonstrated osteopenia of the right femoral neck with T-score of -1.2 now with T-score -1.0 Dictated by: Wesly Campoverde MD 01/28/2020 08:53 Electronically signed by Wesly Campoverde MD in [place] 01/28/2020 08:53
--- NOTE | 2020-01-27 08:12 | MM_ITS ---
PROCEDURE: MM DIG SCREENING MAMM BI W/CAD Digital Breast Tomosynthesis Included CLINICAL INDICATION: SCREENING Screening for breast cancer COMPARISON: [facility] DIGITAL MAMM-SCREEN BILATERAL from 06/25/2012 [facility] DIG MAMM-SCREEN YUDY from 05/06/2015 [facility] MM Dig screening mamm BI w/CAD from 10/08/2017 TECHNIQUE: Standard CC and MLO images and 3D Tomosynthesis was obtained. R2 CAD reviewed. FINDINGS: There is average to dense fibroglandular tissue. Benign-appearing calcifications are present in the upper inner right breast. Benign appearing nodule noted in the upper aspect of the left breast. No malignant appearing mass or malignant-appearing microcalcification. IMPRESSION: BI-RAD Category: 2 Benign Finding(s) FOLLOW-UP: 1YR 1 Year Follow-up (A letter has been sent to the patient regarding results of the study.) Dictated by: Wesly Campoverde MD 01/27/2020 14:31 Electronically signed by Wesly Campoverde MD in [place] 01/27/2020 14:31
== END ==
PROVIDERS: PCP Family Medicine; Visit Provider Family Medicine
DX: Z12.31 Encounter for screening mammogram for malignant neoplasm of breast (principal); M85.851 Other specified disorders of bone density and structure, right thigh
CPT/HCPCS: 77063; 77067; 77080

== ENCOUNTER → 2020-02-05 08:05 | Outpatient (CLI) | payer MEDICARE, SELFPAY ==
--- NOTE | 2020-02-05 08:08 | CT_ITS ---
PROCEDURE: CT LUNG SCREENING CLINICAL INDICATION: H/O NICOTINE DEPENDENCE Current smoker. COMPARISON: No exams were available for comparison TECHNIQUE: The exam was performed on a GE Light Speed [address] scanner using 2.90 mGy CTDI. A low dose helical CT CHEST was performed on a multi-detector scanner. All CT scans at the facility use one or more dose reduction, viz: automated exposure control, ma/kV adjustment per patient size (including targeted exams where dose is matched to indication, i.e. head), or iterative reconstruction technique. The LDCT was performed in a facility that meets the criteria for the screening program. Data regarding this exam was submitted to ACR which is an approved registry. The order for this exam indicates that it came as a result of a lung cancer screening counseling shard decision-making visit that included all the elements required of such a visit including smoking cessation. The radiologist interpreting this exam meets the CMS criteria for the LDCT lung cancer screening program. The exam is reported using the Lung-RADS classification scale and reported to the ACR registry. NOTE: This study was performed for the specific purposes of lung cancer screening and is not an alternative to diagnostic chest CT. RADIATION DOSE: CTDI vol(CT dose Index-volume) = 2.90mG DLP (Dose Length Product) = mGcm Lung Rads Category: Category 2 Benign. FINDINGS: Visualized lower neck: No mass or lymphadenopathy on limited evaluation of the lower neck and supraclavicular fossa. Great vessels: There is mild atherosclerotic calcification of the aortic arch and descending aorta. Aorta and pulmonary artery and branch vessels are unremarkable with no aneurysm. Heart size is normal with no pericardial effusion. Extensive right and left coronary artery calcifications. Multiple sternotomy wires are seen from prior open heart surgery. Multiple small calcified mediastinal and hilar lymph nodes are present, sequela of old granulomatous disease. There are emphysematous changes of the lungs with hyperinflation and with subtle parenchymal cystic lucencies. Mild fibrotic atelectatic changes are seen posteriorly in the right middle lobe. No worrisome lung nodule or mass is identified. There is no pleural effusion or pneumothorax. Chest wall and axilla unremarkable. Reactive small axillary lymph nodes. Osseous structures: Osteopenia. Mildly increased thoracic kyphosis. OTHER FINDINGS: No other pertinent findings evident. IMPRESSION: 1.Pulmonary emphysema. No worrisome lung nodule or mass identified. 2. Coronary arterial atherosclerotic disease. Dictated by: Scarlet Blood 02/06/2020 17:50 Electronically signed by Scarlet Blood in [place] 02/06/2020 17:50
== END ==
PROVIDERS: PCP Family Medicine; Visit Provider Family Medicine
DX: Z87.891 Personal history of nicotine dependence (principal); Z12.2 Encounter for screening for malignant neoplasm of respiratory organs

== ENCOUNTER → 2021-01-06 09:10 | Outpatient (CLI) | payer MEDICARE, SELFPAY ==
[2021-01-06 09:54] LABS: Basophils # 0.1 K/mm3 (0-0.2); Basophils % 1.1 % (0.1-2.0); Eosinophils # 0.2 K/mm3 (0.0-0.4); Hematocrit 40.8 % (37.0-47.0); Hemoglobin 13.7 g/dL (12.2-16.2); Lymphocytes # 2.8 K/mm3 (0.7-4.5); Lymphocytes % 43.6 % (10-50); Mean Corpuscular HGB Conc 33.7 g/dL (31.8-35.4); Mean Corpuscular Hemoglobin 27.8 pg (27.0-31.2); Mean Corpuscular Volume 82.5 fl (81-99); Mean Platelet Volume 7.6 fl (7.4-10.4); Monocytes # 0.4 K/mm3 (0.1-1.0); Monocytes % 6.5 % (1.7-9.3); Neutrophils % 45.9 % (37.0-80.0); Platelet Count 260 K/mm3 (142-424); Red Blood Count 4.95 M/mm3 (4.20-5.40); Red Cell Distribution Width 14.1 % (11.5-17.5); White Blood Count 6.5 K/mm3 (4.8-10.8)
[2021-01-06 11:47] LABS: Alanine Aminotransferase 12 U/L (12-78); Alkaline Phosphatase 73 U/L (38-126); Anion Gap 13.3 mEq/L (5-15); Aspartate Amino Transferase 20 U/L (14-36); Bilirubin,Direct 0.4 mg/dl (0.0-0.4); Bilirubin,Indirect 0.2 mg/dL (0.0-0.9); Bilirubin,Total 0.6 mg/dl (0.2-1.3); Bilirubin,Unconjugated 0.2 mg/dL (0.0-1.1); Blood Urea Nitrogen 16 mg/dl (7-17); Calcium 9.4 mg/dl (8.4-10.2); Carbon Dioxide 30 mmol/L (22.0-30.0); Chloride 102 mmol/L (98-107); Chol/HDL Ratio 2.4 (1-3.5); Cholesterol 97 mg/dl (140-200); Estimated Glomerular Filt Rate 62 ml/min (>60); GFR (African American) 75 ML/MIN (>60); Glucose 113 mg/dl (74-100); HDL Cholesterol 40 mg/dl (40-60); Potassium 4.3 mmoL/L (3.5-5.1); Sodium 141 mmol/L (136-145); Total Protein,Serum 6.6 g/dl (6.3-8.2); Triglycerides 84 mg/dl (30-150); VLDL Cholesterol 17 mg/dL (0-40)
[2021-01-06 11:57] LABS: Direct LDL Cholesterol 35.14 mg/dL (100-129)
== END ==
PROVIDERS: Visit Provider Physician Assistant
DX: Z79.899 Other long term (current) drug therapy (principal); I10 Essential (primary) hypertension; I25.810 Atherosclerosis of coronary artery bypass graft(s) without angina pectoris; E78.2 Mixed hyperlipidemia
CPT/HCPCS: 36415; 80048; 80061; 80076; 85025

== ENCOUNTER → 2021-02-27 17:36 | Outpatient (CLI) | payer MEDICARE, SELFPAY | PROVIDERS: PCP Family Medicine; Visit Provider Nurse Practitioner Family | DX: Z20.822 Contact with and (suspected) exposure to COVID-19 (principal) | CPT/HCPCS: U0003 ==

== ENCOUNTER → 2022-05-10 09:25 | Outpatient (CLI) | payer MEDICARE, SELFPAY ==
--- NOTE | 2022-05-10 09:28 | CT_ITS ---
FINAL REPORT CLINICAL HISTORY: H/O NICOTINE DEPENDENCE, 1 PPD X 40 YEARS COMPARISON: October 08, 2017 and February 05, 2020 FINDINGS: Low-Dose Chest CT Axial images were obtained from the lung apex to the mid abdomen by computed tomography. Low-dose protocol was utilized. CTDI vol (mGy): 2.90 DLP (mGy-cm): 89.86 There are postoperative changes from median sternotomy. There is no axillary adenopathy. There is no hilar adenopathy. There are multiple borderline size mediastinal lymph nodes. The heart is proper size. There are severe coronary artery calcifications. There is no pericardial or pleural effusion. Lung window images demonstrate mild changes of emphysema with mild pulmonary scarring. There is a 2 mm nodule in the right upper lobe well seen on image 31 and a 4 mm nodule in the lateral right lower lobe well seen on image 34, both are stable since 2018. Limited images of the upper abdomen are unremarkable. IMPRESSION: Right lung nodules stable since 2018. Lung RADS category 1. Recommend 12 month follow-up low-dose chest CT. Reviewed, Interpreted and Dictated by Jose Luis Robles III, MD Transcribed by Meghan Wu Authenticated and . [facility]
--- NOTE | 2022-05-10 09:29 | MM_ITS ---
PROCEDURE INFORMATION: Exam: MG Bilateral Screening 3D Mammography Exam date and time: 05/10/2022 9:27 AM Age: 71 years old Clinical indication: Screening mammogram TECHNIQUE: Imaging protocol: Bilateral Screening tomosynthesis and 2D mammography including computer-aided detection (CAD) when performed. COMPARISON: 1. MG MM DIG SCREENING MAMM BI W/CAD 01/27/2020 8:13 AM 2. MG [facility] MM Dig screening mamm BI w/CAD 10/08/2017 3:01 PM 3. MG [facility] DIG MAMM-SCREEN YUDY 05/06/2015 9:36 AM 4. MG [facility] DIGITAL MAMM-SCREEN BILATERAL 06/25/2012 10:40 AM FINDINGS: MAMMOGRAPHY: Breast composition: The breast tissue is extremely dense, which lowers the sensitivity of mammography. Mass: None. Architectural distortion: No new or suspicious architectural distortion. Calcifications: No new or suspicious calcifications are present Asymmetric density: No new or suspicious asymmetric density is present Skin thickening: None. Axillary adenopathy: None. IMPRESSION: No mammographic evidence of malignancy. Recommend annual screening mammography unless otherwise clinically indicated. ASSESSMENT: BI-RADS category 1: Negative
--- NOTE | 2022-05-10 09:29 | XR_ITS ---
FINAL REPORT TECHNIQUE: Bone densitometry calculations of the lumbar spine and hip were obtained. CLINICAL HISTORY: osteopenia COMPARISON: January 27, 2020 FINDINGS: DEXA BONE DENSITY AXIAL SKELETON Using L1-4, the bone mineral density of the spine is 1.004 g/cm2, corresponding to T-score of -0.4. Previously measured 0.978 g/cm2, corresponding to T-score of -0.6. Using the left hip, the bone mineral density of the femoral neck is 0.704 g/cm2, corresponding to a T-score of -1.3. Previously measured 0.832 g/cm2, corresponding to T-score of -0.9. NOTE: T-score: Standard deviation compared with peak bone mass of young adult mean. *Following the recommendations of the International Society of Bone densitometry, classification of hip BMD is based on the lower of two T-scores; total hip or femoral neck. IMPRESSION: Diminished bone mineral density of the lumbar spine and left hip consistent with osteopenia. FRAX 10 year fracture risk is 1.5% for a hip fracture and 8.8% for a major osteoporotic fracture. Reviewed, Interpreted and Dictated by Jose Luis Robles III, MD Transcribed by Meghan Wu Authenticated and . [facility]
== END ==
PROVIDERS: PCP Family Medicine; Visit Provider Nurse Practitioner Family
DX: Z87.891 Personal history of nicotine dependence (principal); Z12.2 Encounter for screening for malignant neoplasm of respiratory organs; Z12.31 Encounter for screening mammogram for malignant neoplasm of breast; M85.89 Other specified disorders of bone density and structure, multiple sites
CPT/HCPCS: 71271; 77063; 77067; 77080

== ENCOUNTER 2022-08-21 19:32 | Emergency (ER) | payer MEDICARE, SELFPAY ==
[2022-08-21 20:30] VITALS: BP 148/79; PULSE 80; RESP 22; TEMP 36.5; O2SAT 97; BMI 26.5
--- NOTE | 2022-08-21 21:09 | EXP.UTC ---
Discharge Plan Disposition Patient Disposition: Home, Self-Care Condition: Good Prescriptions Prescriptions: New prednisone 10 mg tablet 10 mg PO BID 3 Days Qty: 6 0RF benzonatate 100 mg capsule 100 mg PO TID PRN (Reason: cough) Qty: 15 0RF amoxicillin-pot clavulanate 875-125 mg Tablet 1 tab PO Q12H Qty: 20 0RF fluticasone propionate [Flonase Allergy Relief] 50 mcg/actuation spray,suspension 1 spray intranasal DAILY Qty: 16 0RF Rx Instructions: administer into each nostril No Action losartan 100 mg tablet See Rx Instructions .ROUTE .COMPLEX Qty: 90 2RF Dose Instruction: TAKE 1 TABLET BY MOUTH ONCE DAILY FOR HYPERTENSION Rx Instructions: TAKE 1 TABLET BY MOUTH ONCE DAILY FOR HYPERTENSION rosuvastatin 20 mg tablet See Rx Instructions .ROUTE .COMPLEX Qty: 90 2RF Dose Instruction: Take 1 tablet by mouth once daily Rx Instructions: Take 1 tablet by mouth once daily carvedilol 12.5 mg tablet See Rx Instructions .ROUTE .COMPLEX Qty: 180 1RF Dose Instruction: Take 1 tablet by mouth twice daily Rx Instructions: Take 1 tablet by mouth twice daily amlodipine 5 mg tablet See Rx Instructions .ROUTE .COMPLEX Qty: 90 1RF Dose Instruction: Take 1 tablet by mouth once daily Rx Instructions: Take 1 tablet by mouth once daily hydrochlorothiazide 12.5 mg tablet See Rx Instructions .ROUTE .COMPLEX Qty: 90 1RF Dose Instruction: Take 1 tablet by mouth once daily Rx Instructions: Take 1 tablet by mouth once daily aspirin 81 MG tablet,delayed release (DR/EC) 81 mg PO DAILY Referrals Follow up/Referrals: Jose G Campbell MD [Primary Care Provider] - See instructions Activity Restrictions/Add. Instructions Additional Instructions/Restrictions: Go straight to ER if you have any chest pain, worsening of dizziness, or any life threatening symptoms Take medication as prescribed Follow up with your Family Doctor if no improvement or any worsening of symptoms Return if needed Clinical Impressions Clinical Impression: Sinusitis Instructions Patient Instructions: DI for Sinusitis, Sinusitis Discharge ED Provider: Millie Dumont [facility] HPI General Stated complaint: Sinus, Resp Mode of Arrival: Ambulatory Source of Information: Patient Limitations: No Limitations Time Seen by Provider: 08/21/22 21:09 Description of Symptoms (Recalled from Triage Doc. by RN): PATIENT C/O DIZZINESS, HEAD/CHEST CONGESTION, COUGH, DECREASED APPETITE, AND SINUS DRAINAGE SINCE SUNDAY HEENT Symptoms (Recalled from RN notes): Yes Resp Symptoms (Recalled from RN notes): Yes Skin Symptoms (Recalled from RN notes): No MS Symptoms (Recalled from RN notes): No Functional Status (Recalled from RN notes): WNL History of Present Illness Provider Complaint: Patient states that she has been having sinus pain and pressure, drainage in the back of her throat, pain and pressure in her ears and feeling of fullness States that at times she felt a little dizzy if she turned or moved to quickly but she has done that with ear infections before and cough States that she feels like it is trying to move into her chest so tonight she came in to get checked Related Data Home Medications Medication Instructions Recorded Confirmed aspirin 81 mg tablet,delayed 81 mg PO DAILY CAD 10/08/17 02/24/22 release Previous Rx's Medication Instructions Recorded losartan 100 mg tablet See Rx Instructions .Route 02/03/22 .COMPLEX #90 tabs rosuvastatin 20 mg tablet See Rx Instructions .Route 02/06/22 .COMPLEX #90 tabs carvedilol 12.5 mg tablet See Rx Instructions .Route 05/09/22 .COMPLEX #180 tabs amlodipine 5 mg tablet See Rx Instructions .Route 06/29/22 .COMPLEX #90 tabs hydrochlorothiazide 12.5 mg tablet See Rx Instructions .Route 07/04/22 .COMPLEX #90 tabs amoxicillin 875 mg-potassium 1 tab PO Q12H #20 tabs 08/21/22 clavulanate 125 mg tab
[2022-08-21 21:22] VITALS: BP 148/79; PULSE 80; RESP 22; TEMP 36.5; O2SAT 97
== END 2022-08-21 21:29 | disposition home or self-care (01) ==
PROVIDERS: Emergency Provider Nurse Practitioner; PCP Family Medicine
DX: J32.9 Chronic sinusitis, unspecified (principal)
CPT/HCPCS: 99212; 99213; G0463

== ENCOUNTER → 2022-09-28 09:23 | Outpatient (CLI) | payer MEDICARE, SELFPAY ==
[2022-09-28 10:20] LABS: Alanine Aminotransferase 16 U/L (12-78); Albumin Level 4.1 g/dl (3.5-5.0); Alkaline Phosphatase 93 U/L (38-126); Aspartate Amino Transferase 21 U/L (14-36); Bilirubin,Direct 0.2 mg/dl (0.0-0.4); Bilirubin,Indirect 0.2 mg/dL (0.0-0.9); Bilirubin,Total 0.4 mg/dl (0.2-1.3); Bilirubin,Unconjugated 0.3 mg/dL (0.0-1.1); Chol/HDL Ratio 1.9 (1-3.5); Cholesterol 85 mg/dl (140-200); HDL Cholesterol 44 mg/dl (40-60); Total Protein,Serum 6.6 g/dl (6.3-8.2); Triglycerides 93 mg/dl (30-150); VLDL Cholesterol 19 mg/dL (0-40)
[2022-09-28 10:31] LABS: Direct LDL Cholesterol 33.19 mg/dL (100-129)
== END ==
PROVIDERS: PCP Family Medicine; Visit Provider Internal Medicine Cardiovascular Disease
DX: E11.9 Type 2 diabetes mellitus without complications (principal); I11.9 Hypertensive heart disease without heart failure
CPT/HCPCS: 36415; 80061; 80076

== ENCOUNTER → 2022-11-09 07:57 | Outpatient (CLI) | payer MEDICARE, SELFPAY ==
--- NOTE | 2022-11-09 08:07 | CA_ITS ---
FINAL REPORT TECHNIQUE: Real-time imaging was performed of the extracranial carotid arteries in transverse and longitudinal planes, with color duplex evaluation of blood flow velocity. Spectral analysis was performed. The cervical vertebral arteries were also examined. CLINICAL HISTORY: CAD COMPARISON: None FINDINGS: NASCET technique is utilized for stenosis evaluation. Right carotid system (centimeters/second): CCA: 87 ICA: 85 ECA: 106 Vertebral artery: Antegrade ICA/CCA ratio: 1.2 Mild plaque is identified at the bifurcation. Left carotid system (centimeters/second): CCA: 130 ICA: 98 ECA: 87 Vertebral artery: Antegrade ICA/CCA ratio: 1.4 Mild plaque is identified at the bifurcation. IMPRESSION: <50% right ICA stenosis. <50% left ICA stenosis. Reviewed, Interpreted and Dictated by Spike Abebe MD Transcribed by Bailey Piedra Authenticated and . [facility]
--- NOTE | 2022-11-09 08:53 | XR_ITS ---
FINAL REPORT CLINICAL HISTORY: [facility]AS[facility] COMPARISON: 08/12/2016 FINDINGS: Left foot Three views were obtained. There is no acute fracture or dislocation. The joint spaces appear normal. There is moderate hallux valgus deformity. Soft tissue swelling is seen over the 1st metatarsal head. IMPRESSION: No acute process. Reviewed, Interpreted and Dictated by Spike Abebe MD Transcribed by Cassi Zheng Authenticated and [facility]
== END ==
PROVIDERS: PCP Family Medicine; Visit Provider Physician Assistant
DX: E78.2 Mixed hyperlipidemia (principal); I25.2 Old myocardial infarction; I25.810 Atherosclerosis of coronary artery bypass graft(s) without angina pectoris; R94.31 Abnormal electrocardiogram [ECG] [EKG]; Z72.0 Tobacco use; Z95.1 Presence of aortocoronary bypass graft; R42 Dizziness and giddiness; M72.2 Plantar fascial fibromatosis
CPT/HCPCS: 73630; 93306; 93880

== ENCOUNTER 2024-03-27 07:48 | Outpatient (CLI) | payer MEDICARE, SELFPAY ==
--- NOTE | 2024-03-27 07:51 | MM_ITS ---
PROCEDURE INFORMATION: Exam: MG Bilateral Screening 3D Mammography Exam date and time: 03/27/2024 7:46 AM Age: 73 years old Clinical indication: Screening examination TECHNIQUE: Imaging protocol: Bilateral Screening tomosynthesis and 2D mammography including computer-aided detection (CAD) when performed. COMPARISON: 1. MG MM DIG SCREENING MAMM BI W/CAD 05/10/2022 9:27 AM 2. MG MM DIG SCREENING MAMM BI W/CAD 01/27/2020 8:13 AM FINDINGS: MAMMOGRAPHY: Breast composition: The breasts are extremely dense, which lowers the sensitivity of mammography. Mass: None. Architectural distortion: None. Calcifications: No suspicious calcifications. Asymmetric density: None. Skin thickening: None. Axillary adenopathy: None. IMPRESSION: No mammographic evidence of malignancy. Annual screening is recommended unless otherwise clinically indicated. ASSESSMENT: BI-RADS Category 1: Negative.
== END 2024-03-27 23:59 | disposition home or self-care (01) ==
LOC: RAD 07:49
PROVIDERS: PCP Family Medicine; Visit Provider Physician Assistant
DX: Z12.31 Encounter for screening mammogram for malignant neoplasm of breast (principal)
CPT/HCPCS: 77063; 77067

== ENCOUNTER 2024-05-02 07:00 | Outpatient (CLI) | payer MEDICARE, SELFPAY ==
--- NOTE | 2024-05-02 | CA_ITS ---
APPROVED REPORT Exam: Pharmacologic Technologist: Adela Jimenes, Ht: 5 ft 3 in Wt: 150 lbs BSA: 1.71 m2 HR: 74 bpm BP: 114/72 mmHg Rhythm: NSR Indications: SOA, CAD Medical History Medical History: HTN, Hyperlipidemia, Smoking Medications: Amlodipine,,,,, Aspirin,,,,, Losartan,,,,, HCTZ,,,,, Carvedilol,,,,, RoSUVASTATIN,,,,, Allergies: NKDA Cardiac Risk Factors: HTN, Hyperlipidemia, Smoking Stress Test Details Test: LEXISCAN HR Resting HR: 71 bpm Max Heart Rate (APMHR): 149 bpm Max HR Achieved: 97 bpm Target HR (85% APMHR): 127 bpm % of APMHR: 65 Recovery HR: 78 bpm BP Resting BP: 114/72 mmHg Max BP: 117/70 mmHg Recovery BP: 96.0/58.0 mmHg ECG Resting ECG: NSR Clinical Exercise duration: 04:01 min Highest Stage Achieved: Exercise capacity: 1.0 METs Stress ECG Conclusion Pt switched from exercise due to inadequate HR response Pt had soa, and head discomfort No chest pain. Mild, no significant ST changes Unremarkable lexiscan stress. Myoview images are reported separately. Test Summary REST 02:33 . . 71 . 114/ 72 . . Stage 1 01:00 . . 77 . . . . Stage 2 01:00 . . 90 . 117/ 70 . . Stage 3 01:00 . . 78 . 113/ 62 . . Stage 4 01:00 . . 79 . 100/ 60 . . Stage 4 01:01 . . 79 . 100/ 60 . Stop exercise at 04:01 RECOVERY 01:00 . . 80 . 117/ 65 . . RECOVERY 02:00 . . 78 . 117/ 65 . . RECOVERY 03:00 . . 79 . 98/ 68 . . RECOVERY 04:00 . . 77 . 94/ 61 . . RECOVERY 05:00 . . 76 . 94/ 61 . . RECOVERY 06:00 . . 76 . 92/ 59 . . RECOVERY 07:00 . . 77 . 92/ 59 . . RECOVERY 08:00 . . 76 . 96/ 58 . . RECOVERY 08:21 . . 77 . 96/ 58 . . Electronically signed by : Deepthi Berumen MD 05/05/2024 12:09:03
--- NOTE | 2024-05-02 07:05 | NM_ITS ---
APPROVED REPORT Exam: Nuclear Stress Test Indication: hx OK..cad..family hx..tobaco use Patient Location: Outpatient Stress Tech: Adela Jimenes [place] Tech:Anisa OdonnellringtonGEE RT(R)(N) Ht: 5 ft 3 in Wt: 150 lbs Bra Size: 38b HR: 71 bpm BP: 114/72 mmHg BSA: 1.71 m2 Rhythm: NSR TID: 1.13 BMI: 26.5 History: hx OK..cad..family hx..tobaco use Procedure: Patient received 0.4 mg of intravenous Lexiscan, resting heart rate 71 bpm, resting blood pressure 114/72 mmHg, with Lexiscan maximum heart rate achieved was 97 bpm which is 85 % of the maximum predicted heart rate and blood pressure was 117/70 mmHg. With Lexiscan, patient denied any complaint of chest pain. Cardiac Stress and Resting SPECT Images: Cardiac Stress and Resting SPECT images were obtained using technetium 99m Myoview 25.9 mCi stress and 8.46 mCi at rest. Resting and stress imaging in supine and prone positions demonstrated small sized, moderate, reversible perfusion defect in the LV apical wall. Gated imaging demonstrates mild reduction global LV systolic function. LVEF is calculated at 49%. Conclusion: Small sized, moderate, reversible perfusion defect in the LV apical wall. Findings are suggestive of reversible ischemia. Gated imaging demonstrates mild reduction global LV systolic function. LVEF is calculated at 49%. Electronically signed by : Deepthi Berumen MD 05/05/2024 12:10:11
[2024-05-02] MEDS: REGADENOSON 0.4MG/5ML SYRINGE 0.4 MG IV (10:35)
[2024-05-02] MEDS: ISOTOPE MYOVIEW (PER STUDY) 1 DOSE IV (10:36)
[2024-05-02] MEDS: SODIUM CHLORIDE 0.9% 10ML SYR (RAD ONLY) 10 ML IV ×2 (10:36)
== END 2024-05-02 23:59 | disposition home or self-care (01) ==
LOC: RAD 07:01
PROVIDERS: PCP Family Medicine; Visit Provider Nurse Practitioner Family
DX: I25.10 Atherosclerotic heart disease of native coronary artery without angina pectoris (principal)
CPT/HCPCS: 78452; 93017; 93018; A9502; J2785

== ENCOUNTER 2024-05-12 09:09 | Outpatient (CLI) | payer MEDICARE, SELFPAY ==
--- NOTE | 2024-05-12 09:13 | XR_ITS ---
FINAL REPORT TECHNIQUE: Bone mineral density was calculated of the lumbar spine and hip. CLINICAL HISTORY: .post menopausal screening FINDINGS: Using L1-4, the bone mineral density of the spine is 1.067 g/cm2, corresponding to T-score of 0.2. Using the left hip, the bone mineral density of the femoral neck is 0.810 g/cm2, corresponding to a T-score of -1.1. Using the right hip, the bone mineral density of the femoral neck as 0.754 g/cm?, corresponding to a T-score of -0.9. NOTE: T-score: Standard deviation compared with peak bone mass of young adult mean. *Following the recommendations of the International Society of Bone densitometry, classification of hip BMD is based on the lower of two T-scores; total hip or femoral neck. IMPRESSION: Diminished bone mineral density of the left hip compatible with low bone density. Normal bone mineral density of the right hip and lumbar spine. Authenticated and ERN
--- NOTE | 2024-05-12 09:46 | CT_ITS ---
FINAL REPORT TECHNIQUE: Thin section axial images were obtained from the lung apices to the upper abdomen by computed tomography. Reformatted images were obtained and reviewed. This study was performed with techniques to keep radiation doses al low as reasonably achievable (ALARA). Individualized dose reduction techniques using automated exposure control or adjustment of mA and/or kV according to the patient's size were employed. CLINICAL HISTORY: .current smoker 1ppd x20+ years COMPARISON: 05/10/2022 FINDINGS: CHEST CT LOW DOSE CTDI vol (mGy): 2.90 DLP (mGy-cm): 92.47 There is no axillary adenopathy. There is no mediastinal or hilar mass or adenopathy. There is evidence of prior median sternotomy. The heart is normal in size. There is no pericardial or pleural effusion. There is mild emphysema and mild pulmonary scarring. Lung window images demonstrate several small pulmonary nodules again seen in the right lung. These are stable in size and appearance. There is an anterior right lower lobe 4 mm nodule on series 3 image 40. No new mass or nodule is identified. Limited images of the upper abdomen are unremarkable. IMPRESSION: Stable right lung nodules. Lung-RADS category 1. Recommend 12 month follow up low dose chest CT. Authenticated and ERN
== END 2024-05-12 23:59 | disposition home or self-care (01) ==
LOC: RAD 09:10
PROVIDERS: PCP Physician Assistant; Visit Provider Physician Assistant
DX: M81.0 Age-related osteoporosis without current pathological fracture (principal); Z87.891 Personal history of nicotine dependence; Z13.820 Encounter for screening for osteoporosis
CPT/HCPCS: 71271; 77080

== ENCOUNTER 2025-06-23 08:06 | Outpatient (CLI) | payer MEDICARE, SELFPAY ==
--- OUTSIDE RECORDS SUMMARY | 2024-03-19 04:15 | XMS_ITS ---
[facility] Organization [facility] Address [address] [facility] [address] [place] [id number] Care Team Providers Care Principle Industrial Hygienist Name Role Phone Kane Campbell Primary Care Provider [phone] Rachel Rahamn Unavailable [phone] Allergies No Known Allergies Results Component Value Reference Range Notes Glycohemoglobin A1c (in hous e) Reviewed date:03/21/2024 09:01:43 AM Interpretation: Performing Lab: Notes/Report: glycohemoglobin 5.8% 5 - 6.5 % P-Comprehensive Metabolic Pa hanny (CMP) Reviewed date:03/21/2024 09:01:43 AM Interpretation:gluc 115 Performing Lab: Notes/Report: Test performed by [facility], [facility] [address] [place] [address] , [address], [place] [address] Ricardo Russo MD, Hospitalist Program Director CLIA: [id number] Sodium 139 135-145 mmol/L Potassium 3.7 3.5-5.3 mmol/L Chloride 101 97-108 mmol/L CO2 27 22-32 mmol/L Glucose 115 65-99 mg/dL BUN 15 8-23 mg/dL Creatinine 0.88 0.50-1.00 mg/dL Calcium 9.5 8.6-10.4 mg/dL eGFR by Creatinine 70 >59 mL/min/1.73m2 Protein 6.4 6.0-8.3 g/dL Albumin 4.2 3.5-5.3 g/dL Alkaline Phosphatase 76 35-121 IU/L ALT (SGPT) 10 <5-47 IU/L AST (SGOT) 10 <5-40 IU/L Bilirubin, Total 0.4 <0.2-1.2 mg/dL A/G Ratio 1.9 1.1-2.5 P-Lipid Panel Reviewed date:03/21/2024 09:01:43 AM Interpretation:Normal Performing Lab: Notes/Report: Test performed by [facility], [address] , [address], [place] [address] Ricardo Russo MD, Hospitalist Program Director CLIA: [id number] Cholesterol 93 <200 mg/dL Triglycerides 78 <150 mg/dL HDL Cholesterol 40 >39 mg/dL Cholesterol / HDL Ratio 2.33 0.00-4.44 Ratio Non-HDL Cholesterol 53 <130 mg/dL LDL Cholesterol (Calculation) 37 <130 mg/dL LDL Cholesterol Levels* Less than 100 mg/dL Optimal 100 to 129 mg/dL Near Optimal/ Above Optimal 130 to 159 mg/dL Borderline High 160 to 189 mg/dL High 190 mg/dL and above Very High * Categories as recommended by the 2004 ATPIII guidelines LDL/HDL Ratio 0.9 <3.3 Ratio LDL Cholesterol Patient History Test Date: 04/26/2022 LDL Results: 42 Units: mg/dL % Change: - Test Date: 11/09/2023 LDL Results: 33 Units: mg/dL % Change: -21% Test Date: 03/19/2024 LDL Results: 37 Units: mg/dL % Change: +12% P-Vitamin D 25-Hydroxy Reviewed date:03/21/2024 09:01:43 AM Interpretation:18.7 Performing Lab: Notes/Report: Test performed by [facility] [address] , [place] [address] Ricardo Russo MD, Hospitalist Program Director CLIA: [id number] Vitamin D 25-Hydroxy 18.7 30.0-100.0 ng/mL Interpretation of Vitamin D 25 [place]: < 20 ng/mL - Deficiency 20 - 29 ng/mL - Insufficiency 30 - 100 ng/mL - Sufficiency > 100 ng/mL - Super-therapeutic- toxicity may occur above this level. Clinical correlation required. DEXA Hip and Spine Reviewed date:06/12/2024 01:23:49 PM Interpretation:osteopenia left hip Performing Lab: Notes/Report: osteopenia left hip Dexa results osteopenia left hip Mammogram Reviewed date:04/02/2024 01:07:49 PM Interpretation:Negative, annual f/u Performing Lab: Notes/Report: Negative, annual f/u result Negative, annual f/u CT SCAN : CHEST, LUNG CANCER SCREENING LOW DOSE Reviewed date:06/12/2024 01:23:58 PM Interpretation:stable, annual f/u Performing Lab: Notes/Report: stable, annual f/u REASON FOR VISIT 4 mth follow up, Needs labs, mammogram, & low dose chest CT Medications Medication SIG (Take, Route, Frequency, Duration) Notes Start Date End Date Status amLODIPine Besylate 5 MG 1 tab(s) orally once a day Active Vitamin D-3 25 MCG (1000 UT) 1 capsule O rally Once a day; Duration: 30 day(s) Active Ibuprofen 800 MG 1 tab(s) orally 3 ti mes a day as needed Active Pravastatin Sodium 80 MG 1 tab(s) orally once a day (at bedtime) Active hydroCHLOROthiazide 12.5 MG 1 tab(s) ora lly once a day Active Losartan Potassium 100 MG 1 tab(s) orall y once a day Active Carvedilol 12.5 MG 1 tab(s) orally 2 ti mes a day Active Aspirin Adult Low Dose 81 MG 1 tab(s) or ally once a day Active Vitamin B-12 1000 MCG 1 tab(s) orally on a day 12/28/2014 Active Problems Problem Type SNOMED Code ICD Code Onset Dates Problem Status W/U Status Risk Notes Problem Vitamin D deficiency (47170458) Vitamin D3 deficiency (E55.9) Active confirmed Problem Tobacco use (987886997) Tobacco use disorder (F17.200) Active confirmed Vital Signs Weight 152.0 lbs 03/19/2024 Blood pressure systolic 124 mm Hg 03/19/20 24 Blood pressure diastolic 66 mm Hg 024 Heart Rate 65 /min 03/19/2024 Height 62.50 in 03/19/2024 BMI 27.36 kg/m2 03/19/2024 Encounters Encounter Location Date Provider Diagnosis [facility] [address], [place] [id number] 03/19/2024 Rachel Rahman Essential hypertensi on I10 ; History of HI (myocardial infarction) I25.2 ; Hyperlipidemia E78.5 ; Vitamin D3 deficiency E55.9 ; Impaired fasting glucose R73.01 ; Screening mammogram, encounter for Z12.31 ; Osteoporosis screening Z13.820 and Tobacco use disorder F17.200 Assessments Encounter Date Diagnosis (ICD Code) Assessment Notes Treatment Notes Treatment Clinical Notes Section Notes 03/19/2024 Essential hypertension (ICD-10 - I10) 03/19/2024 History of HI (myocardial infarction) (ICD-10 - I25.2) 03/19/2024 Hyperlipidemia (ICD-10 - E78.5) 03/19/2024 Vitamin D3 deficiency (ICD-10 - E55.9) 03/19/2024 Impaired fasting glucose (ICD-10 - R73.01) 03/19/2024 Screening mammogram, encounter for (ICD-10 - Z12.31) 03/19/2024 Osteoporosis screening (ICD-10 - Z13.820) 03/19/2024 Tobacco use disorder (ICD-10 - F17.200) Plan Of Treatment Next Appt Details Follow Up: via phone to repo rt test results, Reason: Progress Notes * JOANN BUTLEROB:1950 (74 yo F)Acc No.[id number]:03/19/2024 Progress Notes Patient: MAHAMED MIDDLETON Provider: PHYLLIS Faustin :1950 A ge:73 Y S ex:Female Date:03/19/2024 Address:[address] [place], [place] [id number] Pcp:Kane Campbell Subjective: * Chief Complaints: * 1 . 4 mth follow up. 2. Needs labs, mammogram, & low dose chest CT. * HPI: C ardiology: The patient is here for a check up on Hypertension and Hyperlipidemia. Pt states she is doing good and denies any new concerns. Pt states she is not fasting. Denies : Chest Pain. D enies : Short of Breath. D enies : Dizziness. D enies : Palpitations. * ROS: D ERMATOLOGY: no R lotus. n o H james. G ASTROENTEROLOGY: no N ausea. n o V omiting. n o D iarrhea.? U ROLOGY: no D ifficulty urinating. n o B lood in urine. * Medical History: H [place], Coronary Artery Disease, Angina unstable, HI x 2 2009, 2013. * Surgical History: B TL 1991, heart stent , heart stent 11-17-11, bypass quad 08-07-13, Heart cath with Dr. OCHOA 11/2018, colonoscopy 10/2018. * Hospitalization/Major Diagno stic Procedure: t rip to the [facility] ER for migraine 2006, [facility], [facility], [facility] - left foot pain 10/08/17. * Family History: F ather: , HI. M other: , kidney failure, gallbladder disease. P aternal Grand Father: . P aternal Grand Mother: . M aternal Grand Father: . M aternal Grand Mother: . S iblings: Sister with gallbladder disease. 2 brother(s) , 3 sister(s) . 3 son(s) , 1 daughter(s) . . * Social History: C URRENT TOBACCO USE S moking Status: Patient does smoke, packs per day: 0.5, Smoking preference: cigarettes. C affeine: yes, frequency:. Exercise: yes. Home smoke detector use: yes. Marital Status: Single. New since last visit: none. Past smoking status: yes, Smoking status: Patient does smoke, Number Cigarettes per day: 5, Smoking preference: cigarettes. Occup. exposure: none. Recreational drug use: no. Alcohol: no. Sexually active: no.. Travel ouside [place]: no. * Medications: T aking Vitamin D-3 25 MCG (1000 UT) Capsule 1 capsule Orally Once a day , Taking amLODIPine Besylate 5 MG Tablet 1 tab(s) orally once a day , Taking Vitamin B-12 1000 MCG Tablet 1 tab(s) orally once a day , Taking Aspirin Adult Low Dose 81 MG Tablet Delayed Release 1 tab(s) orally once a day , Taking Carvedilol 12.5 MG Tablet 1 tab(s) orally 2 times a day , Taking Losartan Potassium 100 MG Tablet 1 tab(s) orally once a day , Taking hydroCHLOROthiazide 12.5 MG Tablet 1 tab(s) orally once a day , Taking Pravastatin Sodium 80 MG Tablet 1 tab(s) orally once a day (at bedtime) , Taking Ibuprofen 800 MG Tablet 1 tab(s) orally 3 times a day as needed , Medication List reviewed and reconciled with the patient * Allergies: N .K.D.A. Objective: * Vitals: W t:152.0, Temp:97.9, BP:124/66, HR:65, Nurse:LENI, Ht: 62.50, BMI:27.36. * Examination: G eneral Examination: General Appearance: N AD. H EENT: u nremarkable.?Oral cavity: n o lesions, mucosa moist and WNL, no erythema. N sadie: s upple, no lymphadenopathy. C hest: n ormal shape and expansion. H eart: R SR. L ungs: c lear to auscultation. A bdomen: bowel sounds present, soft and nontender, no organomegaly or masses, no guarding or rigidity. N eurologic Exam: I ntact, gait normal. S kin: n ormal, no rash. P eripheral pulses: n ormal (2+) bilaterally. E xtremities: n o leg edema. Assessment: * Assessment: 1. E ssential hypertension - I10 (Primary) 2 . H istory of HI (myocardial infarction) - I25.2 3 . H yperlipidemia - E78.5 4 . V itamin D3 deficiency - E55.9 5 . I mpaired fasting glucose - R73.01 6 . Screening mammogram, encounter for - Z12.31 7 . O steoporosis screening - Z13.820 8 . T obacco use disorder - F17.200 Plan: * Treatment: Value Reference Range A /G Ratio 1.9 1.1-2.5 - * A lbumin 4.2 3.5-5.3 - g/dL * A lkaline Phosphatase 76 35-121 - IU/L * A LT (SGPT) 10 <5-47 - IU/L * A ST (SGOT) 10 <5-40 - IU/L * B ilirubin, Total 0.4 <0.2-1.2 - mg/dL * B UN 15 8-23 - mg/dL * C alcium 9.5 8.6-10.4 - mg/dL * C hloride 101 97-108 - mmol/L * C O2 27 22-32 - mmol/L * C reatinine 0.88 0.50-1.00 - mg/dL * G lucose 115 H 65-99 - mg/dL * P otassium 3.7 3.5-5.3 - mmol/L * S odium 139 135-145 - mmol/L * P rotein 6.4 6.0-8.3 - g/dL * e GFR by Creatinine 70 >59 - mL/min/1.73m2 * LaceyRachel Purcell 03/21/2024 9: 01:33 AM > see TE 2.?Hyperlipidemia?LAB: P-Lipid Panel (Collection Date & Time - 03/19/2024 08:55 AM)?Normal* Value Reference Range C holesterol / HDL Ratio 2.33 0.00-4.44 - Ratio * C holesterol 93 <200 - mg/dL * H DL Cholesterol 40 >39 - mg/dL * L DL Cholesterol (Calculation) 37 <130 - mg/d L * L DL/HDL Ratio 0.9 <3.3 - Ratio * N on-HDL Cholesterol 53 <130 - mg/dL * T riglycerides 78 <150 - mg/dL * Rachel Rahman 03/21/2024 9: 01:33 AM > see TE 3.?Vitamin D3 deficiency?LAB: P-Vitamin D 25-Hydroxy (Collection Date & Time - 03/19/2024 08:55 AM)? 18.7* Value Reference Range V itamin D 25-Hydroxy 18.7 L 30.0-100.0 - ng/mL * Rachel Rahman 03/21/2024 9: 01:33 AM > see TE 4.?Impaired fasting glucose?LAB: Glycohemoglobin A1c (in house) (Collection Date & Time - 03/19/2024)* Value Reference Range g lycohemoglobin 5.8% 5 - 6.5 % * Dang oBnd 03/19/2024 10: 14:47 AM > Rachel Rahman 03/21/2024 9:01:33 AM > see TE 5.?Screening mammogram, encounter for?Imaging: Mammogram (Performed Date - 03/27/2024)?Negative, annual f/u* Value Reference Range r esult Negative, annual f/u * Rachel Rahman 03/19/2024 12 :51:15 PM > Needs after Nov 2HJeniffer acosta 03/19/2024 1:10:05 PM > no pa required-order faxed to Dang Munson 04/02/2024 1:07:37 PM > , Patient informed of normal results. 6.?Osteoporosis screening?Imaging: DEXA Hip and Spine (Performed Date - 05/12/2024)?osteopenia left hip* Value Reference Range D exa results osteopenia left hip * aLceyRachel Purcell 03/19/2024 12 :51:30 PM > Needs after Nov 2HollaJeniffer ann 03/19/2024 1:11:26 PM > no pa required order faxed to Shelley English 04/22/2024 4:26:39 PM > appt 05/12/2024 @9:15WhSima elizabeth 04/23/2024 2:57:27 PM > 04/22/2024 refaxed order to scheduling.Rachel Rahman 06/12/2024 1:23:46 PM > see TE 7.?Tobacco use disorder?Imaging: CT SCAN : CHEST, LUNG CANCER SCREENING LOW DOSE (Performed Date - 05/12/2024)?stable, annual f/u* LaceyRachel Purcell 03/19/2024 12 :51:44 PM > Needs after May 2TaylZahra rangel 03/21/2024 9:18:32 AM > no auth required; CPT code [id number] Ledesma 04/23/2024 2:57:11 PM > scheduled for 05/12/2024adanRachel Binh 06/12/2024 1:23:54 PM > see TE * Procedure Codes: 3 6416 CAPILLARY BLOOD DRAW, 52091 GLYCATED HEMOGLOBIN TEST, Modifiers: QW * Follow Up: v ia phone to report test results * Images: Billing Information: * Visit Code: 18156 Office Visit, Est Pt., Level 4. * Procedure Codes: 86423 CAPILLARY BLOOD DRAW. 88684 GLYCATED HEMOGLOBIN TEST. Modifiers: QW * Electronic signature of PHYLLIS Serra on 06/23/2025 at 08:10 AM EST Sign off status: Pending * Provider: PHYLLIS Faustin Date: 0 03/19/2024 Generated for Printi ng/Faxing/eTransmitting on: 1 08/24/2024 08:10 AM EST History and Physical Notes * HPI (History of Present Illness) Category Sub-Category Detail Notes Category Not es Cardiology Short of Breath Chest Pain Palpitations Dizziness Examination Category Sub-Category Detail Notes Category Not es General Examination HEENT: unremarkable Heart: RSR Lungs: clear to auscultatio n Abdomen: bowel sounds present , soft and nontender, no organomegaly or masses, no guarding or rigidity Extremities: no leg edema General Appearance: NAD Skin: normal, no rash Neurologic Exam: Intact, gait normal Neck: supple, no lymphaden opathy Oral cavity: no lesions, mucosa m oist and WNL, no erythema Peripheral pulses: normal (2+) bilatera lly Chest: normal shape and exp ansion
--- OUTSIDE RECORDS SUMMARY | 2025-02-05 10:15 | XMS_ITS ---
Author Organization [facility] Address [address] [place] [phone] Care Team Providers Care Policy Writer Name Role Phone Kane Campbell Primary Care Provider [phone] Allergies No Known Allergies Results Component Value Reference Range Notes Glycohemoglobin A1c (in hous e) Reviewed date:02/10/2025 10:49:50 AM Interpretation:see duplicate order Performing Lab: Notes/Report: see duplicate order P-CBC With Platelet And Diff erential Reviewed date:02/10/2025 10:50:01 AM Interpretation:see duplicate order Performing Lab: Notes/Report: see duplicate order P-Comprehensive Metabolic Pa hanny (CMP) Reviewed date:02/10/2025 10:50:13 AM Interpretation:see duplicate order Performing Lab: Notes/Report: see duplicate order P-Lipid Panel Reviewed date:02/10/2025 10:50:25 AM Interpretation:see duplicate order Performing Lab: Notes/Report: see duplicate order Reason For Referral Reason Specific appt with Ruth Berumen Diagnosis 1 H/O right coronary a rtery stent placement (Z95.5) [facility] Referring Provider First Name Kane Jose Referring Provider Last Name Adrian Referring Provider Speciality Family Pra ctice Referred Provider Deepthi Berumen Referred Provider Specialty Cardiovascul ar Disease General Notes Zahra Rush 2024 04:26:34 PM > faxed to [facility] Cardiology, Zahra Rush 02/10/2025 09:07:08 AM > 03/12/2025 at 02:30pm Referral Priority Routine REASON FOR VISIT check up, Needs labs Medications Medication SIG (Take, Route, Frequency, Duration) Notes Start Date End Date Status hydroCHLOROthiazide 12.5 MG 1 tab(s) ora lly once a day Active Losartan Potassium 100 MG 1 tab(s) orall y once a day Active Carvedilol 12.5 MG 1 tab(s) orally 2 ti mes a day Active Ibuprofen 800 MG 1 tab(s) orally 3 ti mes a day as needed Active Aspirin Adult Low Dose 81 MG 1 tab(s) or ally once a day Active amLODIPine Besylate 5 MG 1 tab(s) orally once a day Active Vitamin B-12 1000 MCG 1 tab(s) orally on ce a day 12/28/2014 Active Rosuvastatin Calcium 40 MG 1 tablet Oral ly Once a day Active Vitamin D-3 25 MCG (1000 UT) 1 capsule O rally Once a day; Duration: 30 day(s) Active Vital Signs Weight 151.6 lbs 02/05/2025 Blood pressure systolic 124 mm Hg 02/06/20 25 Blood pressure diastolic 70 mm Hg 025 Heart Rate 72 /min 02/05/2025 Height 62.50 in 02/05/2025 BMI 27.28 kg/m2 02/05/2025 Encounters Encounter Location Date Provider Diagnosis [facility] [address] [phone] 02/05/2025 Kane Campbell Essential hypertensi on I10 ; History of [place] (myocardial infarction) I25.2 ; H/O right coronary artery stent placement Z95.5 ; Tobacco dependence due to cigarettes F17.210 ; Hyperglycemia R73.9 and BMI 27.0-27.9,adult Z68.27 Assessments Encounter Date Diagnosis (ICD Code) Assessment Notes Treatment Notes Treatment Clinical Notes Section Notes 02/05/2025 Essential hypertension (ICD-10 - I10) 02/05/2025 History of IL (myocardial infarction) (ICD-10 - I25.2) 02/05/2025 H/O right coronary artery stent placement (ICD-10 - Z95.5) 02/05/2025 Tobacco dependence due to cigarettes (ICD-10 - F17.210) 02/05/2025 Hyperglycemia (ICD-10 - R73.9) 02/05/2025 BMI 27.0-27.9,adult (ICD-10 - Z68.27) Plan Of Treatment Referrals Referral Date Details 02/05/2025 02/05/2025, Specific appt with Deepthi Martell Next Appt Details Follow Up: 2 Months, Reason: Progress Notes * JOANN BUTLEROB:1950 (74 yo F)Acc No.[id number]:02/05/2025 Progress Notes Patient: MAHAMED MIDDLETON Provider: Kane Campbell M.D. :1950 A ge:74 Y S ex:Female Date:02/05/2025 Address:[address] [place], [place] [address]JO[place], [id number] Subjective: * Chief Complaints: * 1 . Check up. 2. Needs labs. * HPI: C ardiology: The patient is here for a check up on Hypertension and Hyperlipidemia. Pt states she is doing good and denies any new concerns. when seen by Cardiology in May 2024, Sonja Aranda recommended LHC based on myoview results. The patient did not had heart cath done due to fear and anxiety.? Is following up in A today wiith her concerns. Has been taking medications as directed. Smokes 1/2 ppd. Pt is fasting except for a cup of coffee with sugar. Denies : Chest Pain. D enies : [...] H TN, Coronary Artery Disease, Angina unstable, [place] x 2 2009, 2013. * Surgical History: B TL 1991, heart stent , heart stent 11-17-11, bypass quad 08-07-13, Heart cath with Dr. OCHOA 11/2018, colonoscopy 10/2018. * Hospitalization/Major Diagno stic Procedure: t rip to the [facility] ER for migraine 2006, [facility] ER, headache 09/2007, Heartattack, [place] [facility], bypass 07/2013, [facility] - left foot pain 10/08/17. * Family History: F ather: , [place]. M other: , kidney failure, gallbladder disease. [...] ouside US: no. * Medications: T aking Rosuvastatin Calcium 40 MG Tablet 1 tablet Orally Once a day , Taking Vitamin D-3 25 MCG (1000 UT) Capsule [...] tab(s) orally once a day , Taking Ibuprofen 800 MG Tablet 1 tab(s) orally 3 times a day as needed , Discontinued Pravastatin Sodium 80 MG Tablet 1 tab(s) orally once a day (at bedtime) , Medication List reviewed and reconciled with the patient * Allergies: N .K.D.A. Objective: * Vitals: W t: 151.6, Temp: 97.8, BP: 124/70, HR: 72, Nurse: LENI, Ht: 62.50, BMI:27.28. * Examination: G eneral Examination: General Appearance: She is alert, oriented and in no acute distress, well nourished and hydrated. H EENT: s clera and conjunctiva clear, PERRLA..?Oral cavity: mucosa moist and WNL, no erythema. N sadie: supple, no lymphadenopathy, no carotid bruits, thyroid normal. H eart: RRR. L ungs: c lear. A bdomen:?soft and nontender. N eurologic Exam: alert and oriented. E xtremities: n o leg edema. Assessment: * Assessment: 1. E ssential hypertension - I10 (Primary) 2 . H istory of IL (myocardial infarction) - I25.2 3 . H /O right coronary artery stent placement - Z95.5 ? 4 . T obacco dependence due to cigarettes - F17.210 5 . H yperglycemia - R73.9 6 . B IL 27.0-27.9,adult - Z68.27 Plan: * Treatment: * Labs: * L ab: P-Lipid Panel (Collection Date & Time - 02/10/2025) s ee duplicate order L ab: P-Comprehensive Metabolic Panel (CMP) (Collection Date & Time - 02/10/2025) s ee duplicate order L ab: Glycohemoglobin A1c (in house) (Collection Date & Time - 02/10/2025) s ee duplicate order ?Lab: P-CBC With Platelet And Differential (Collection Date & Time - 02/10/2025)?see duplicate order * Procedure Codes: G 2211 Complex e/m visit add on, 3044F HG A1C LEVEL LT 7.0%, G8420 BMI<30 AND >=22 CALC & DOCU, G8950 PREHTN/HTN BP DOC INDCD F/U DOC, G8752 MOST RECENT SYSTOLIC BP < 140MM HG, G8754 MOST RECENT DIASTOLIC BP < 90MM HG, G9899 Scrn augustin perf rslts doc, 3017F COLORECTAL CA SCREEN DOC REV, G8399 PT W/DXA DOCUMENT OR ORDER * Preventive Medicine: Screening / Special Tests: M ammogram , negative. C olonoscopy?10/11/2018 Dr. Dumont, polyps, hemorrhoids, repeat 5 years. B one mineral Density 1 07/12/2023, osteopenia. L gwen cancer screening 1 07/12/2023, stable, repeat annually. * Follow Up: 2 Months * Images: Billing Information: * Visit Code: 77440 Office Visit, Est Pt., Level 4. * Procedure Codes: G2211 Complex e/m visit add on. 3044F HG A1C LEVEL LT 7.0%. G8420 BMI<30 AND >=22 CALC & DOCU. G8950 PREHTN/HTN BP DOC INDCD F/U DOC. G8752 MOST RECENT SYSTOLIC BP < 140MM HG. G8754 MOST RECENT DIASTOLIC BP < 90MM HG. G9899 Scrn augustin perf rslts doc. 3017F COLORECTAL CA SCREEN DOC REV. G8399 PT W/DXA DOCUMENT OR ORDER. * Electronic signature of Kane Campbell MD on 06/23/2025 at 08:09 AM EST Sign off status: Pending * Provider: Kane Campbell M.D. Date: 0 02/05/2025 Generated for Thanhi nazario/Fredis/eTransmitting on: 1 08/24/2024 08:09 AM EST History and Physical Notes * HPI (History of Present Illness) Category Sub-Category Detail Notes Category Not es Cardiology Short of Breath Chest Pain Palpitations Dizziness Examination Category Sub-Category Detail Notes Category Not es General Examination HEENT: sclera and conjunctiv a clear, PERRLA. Heart: RRR Lungs: clear Abdomen: soft and nontender Extremities: no leg edema General Appearance: She is alert, orient ed and in no acute distress, well nourished and hydrated Neurologic Exam: alert and oriented Neck: supple, no lymphaden opathy, no carotid bruits, thyroid normal Oral cavity: mucosa moist and WNL , no erythema Consultation Request Notes Referral Date Referring Provider Referred Provider Not es 02/05/2025 Kane Campbell Yaz Specific a ppt with Dr. Berumen
--- OUTSIDE RECORDS SUMMARY | 2025-03-30 09:15 | XMS_ITS ---
Author Organization [facility] Address [address] [facility] [address] [place] [phone] Care Team Providers Care Import Manager Name Role Phone Kane Campbell Primary Care Provider Allergies No Known Allergies Results Component Value Reference Range Notes Mammogram Reviewed date:03/31/2025 09:40:08 AM Interpretation:see duplicate order Performing Lab: Notes/Report: see duplicate order Reason For Referral Reason needs follow-up colo noscopy Diagnosis 1 Screen for colon can cer (Z12.11) Referral [facility] Referring Provider First Name Kane Jose Referring Provider Last Name Adrian Referring Provider Speciality Family Pra ctice General Notes Zahra Rush 2024 04:09:48 PM > Adri Borges Brynn 03/31/2025 09:24:53 AM > faxed to [facility] Referral Priority Routine REASON FOR VISIT 2 MONTHS, Needs mammogram & colon cancer screening Medications Medication SIG (Take, Route, Frequency, Duration) Notes Start Date End Date Status Vitamin B-12 1000 MCG 1 tab(s) orally on ce a day 12/28/2014 Active amLODIPine Besylate 5 MG 1 tab(s) orally once a day Active Carvedilol 12.5 MG 1 tab(s) orally 2 ti mes a day Active Aspirin Adult Low Dose 81 MG 1 tab(s) or ally once a day Active Ibuprofen 800 MG 1 tab(s) orally 3 ti mes a day as needed Active Vitamin D-3 25 MCG (1000 UT) 1 capsule O rally Once a day; Duration: 30 day(s) Active Rosuvastatin Calcium 40 MG 1 tablet Oral ly Once a day Active hydroCHLOROthiazide 12.5 MG 1 tab(s) orally daily Active Losartan Potassium 100 MG 1 tab(s) orall y Once a day Active Vital Signs Weight 152.2 lbs 03/30/2025 Blood pressure systolic 130 mm Hg 03/30/20 25 Blood pressure diastolic 72 mm Hg 025 Heart Rate 66 /min 03/30/2025 Height 62.50 in 03/30/2025 BMI 27.39 kg/m2 03/30/2025 Encounters Encounter Location Date Provider Diagnosis [facility] [address] [facility] [address] [place], [place] [phone] 03/30/2025 Kane Campbell Essential hypertensi on I10 ; History of [place] (myocardial infarction) I25.2 ; H/O right coronary artery stent placement Z95.5 ; Tobacco dependence due to cigarettes F17.210 ; Smoking 1/2 pack a day or less F17.210 ; Hyperlipidemia, unspecified hyperlipidemia type E78.5 ; Screen for colon cancer Z12.11 ; Fibrocystic breast disease (FCBD), unspecified laterality N60.19 and BMI 27.0-27.9,adult Z68.27 Assessments Encounter Date Diagnosis (ICD Code) Assessment Notes Treatment Notes Treatment Clinical Notes Section Notes 03/30/2025 Essential hypertension (ICD-10 - I10) 03/30/2025 History of NE (myocardial infarction) (ICD-10 - I25.2) 03/30/2025 H/O right coronary artery stent placement (ICD-10 - Z95.5) 03/30/2025 Tobacco dependence due to cigarettes (ICD-10 - F17.210) 03/30/2025 Smoking 1/2 pack a day or less (ICD-10 - F17.210) recommend D/C smoking 03/30/2025 Hyperlipidemia, unspecified hyperlipidemia type (ICD-10 - E78.5) 03/30/2025 Screen for colon cancer (ICD-10 - Z12.11) 03/30/2025 Fibrocystic breast disease (FCBD), unspecified laterality (ICD-10 - N60.19) 03/30/2025 BMI 27.0-27.9,adult (ICD-10 - Z68.27) Plan Of Treatment Medication Medication Name Sig Start Date Stop Date Notes hydroCHLOROthiazide 12.5 MG 1 tab(s) orally daily Losartan Potassium 100 MG 1 tab(s) orally Once a day Treatment Notes Assessment Notes Smoking 1/2 pack a day or less recommend D/C smoking Referrals Referral Date Details 03/30/2025 03/30/2025, needs fo llow-up colonoscopy Next Appt Details Follow Up: 5M, Reason: Progress Notes * JOANN BUTLEROB:1950 (74 yo F)Acc No.[id number]:03/30/2025 Progress Notes Patient: MAHAMED MIDDLETON Provider: Kane Campbell M.D. :1950 A ge:74 Y S ex:Female Date:03/30/2025 Address:[address] [place], [place] [address], [id number] Subjective: * Chief Complaints: * 1 . 2 MONTHS. 2. Needs mammogram & colon cancer screening. * HPI: C ardiology: The pt is here for a check up on Hypertension. Pt states she is doing good and denies any new concerns today. Pt is fasting. Pt states she was out of Amlodipine for about 2 days but she got it this morning and has taken it today. Pt does check her BP at home and it is doing good. Denies : Chest Pain. D enies : [...] H TN, Coronary Artery Disease, Angina unstable, [place] x 2 2009, 2013. * Surgical History: B TL 1991, heart stent , heart stent 11-17-11, bypass quad 08-07-13, Heart cath with Dr. OCHOA 11/2018, colonoscopy 10/2018. * Hospitalization/Major Diagno stic Procedure: t rip to the [facility] ER for migraine 2006, [facility] ER, headache 09/2007, [facility], bypass 07/2013, [facility] [place] - left foot pain 10/08/17. * Family History: F ather: , [place]. M other: , kidney failure, gallbladder disease. [...] N .K.D.A. Objective: * Vitals: W t: 152.2, Temp: 97.7, BP: 130/72, HR: 66, O2 Sat: 99% on RA, Nurse: LENI, Ht: 62.50, BMI:27.39. * Examination: G eneral Examination: General Appearance: [...] I10 (Primary) 2 . H istory of NE (myocardial infarction) - I25.2 3 . H /O right coronary artery stent placement - Z95.5 ? 4 . T obacco dependence due to cigarettes - F17.210 5 . S moking 1/2 pack a day or less - F17.210 6 . H yperlipidemia, unspecified hyperlipidemia type - E78.5 7 . S creen for colon cancer - Z12.11 8 . F ibrocystic breast disease (FCBD), unspecified laterality - N60.19 9 . B NE 27.0-27.9,adult - Z68.27 Plan: * Treatment: 2. S moking 1/2 pack a day or less Notes: recommend D/C smoking 3. S creen for colon cancer Referral To: Reason:needs follow-up colonoscopy 4. F ibrocystic breast disease (FCBD), unspecified laterality I maging: Mammogram (Performed Date - 03/30/2025) s ee duplicate order * Procedure Codes: G 2211 Complex e/m visit add on, G8420 BMI<30 AND >=22 CALC & DOCU, G8950 PREHTN/HTN BP DOC INDCD F/U DOC, G8752 MOST RECENT SYSTOLIC BP < 140MM HG, G8754 MOST RECENT DIASTOLIC BP < 90MM HG, 3075F SYST BP GE 130 - 139MM HG, 3078F DIAST BP < 80 MM HG * Follow Up: 5 M * Images: Billing Information: * Visit Code: 02854 Office Visit, Est Pt., Level 4. * Procedure Codes: G2211 Complex e/m visit add on. G8420 BMI<30 AND >=22 CALC & DOCU. G8950 PREHTN/HTN BP DOC INDCD F/U DOC. G8752 MOST RECENT SYSTOLIC BP < 140MM HG. G8754 MOST RECENT DIASTOLIC BP < 90MM HG. 3075F SYST BP GE 130 - 139MM HG. 3078F DIAST BP < 80 MM HG. * Electronic signature of Kane Campbell MD on 06/23/2025 at 08:09 AM EST Sign off status: Pending * Provider: Kane Campbell M.D. Date: 0 03/30/2025 Generated for Larisa lange/Fredis/eTransmitting on: 1 08/24/2024 08:09 AM EST History [...] Date Referring Provider Referred Provider Not es 03/30/2025 Kane Campbell , needs foll ow-up colonoscopy
--- OUTSIDE RECORDS SUMMARY | 2025-06-23 08:10 | XMS_ITS | Clinical Summary ---
Author Organization [facility] Address [address] [place] [address] Care Team Providers Care Coal Handling Supervisor Name Role Phone Reinier Campbell MD Primary Care Provider Social History Tobacco Use Types Packs/Day Years Used Date Smoking Tobacco: Never Assessed Comments Unknown Sex and Gender Information Value Date Recorded Sex Assigned at Not on file Legal Sex Female 8:37 PM EDT Gender Identity Not on file Sexual Orientation Not on file Plan of Treatment Health Maintenance Due Date Last Done Comments [facility]-Bone Density Scan 1950 [facility]-Depression Screening 1950 [facility]-Hepatitis C Screening 1950 [facility]-Medicare Annual Wellness (AWV) 1950 [facility]-Infant/Child/Adol SDOH Screenings 1950 [facility]- SDOH Screenings 1970 [facility]-Adult SDOH Screenings 1970 [facility]-DTaP,Tdap,and Td Vaccine s (1 - Tdap) 09/08/1996 09/07/1996 CT Colonography 1997 Colonoscopy 1997 FIT-DNA 1997 FIT 1997 FOBT 1997 Sigmoidoscopy 1997 [facility]-Colorectal Cancer Screening 1997 [facility]-Breast Cancer Screening 2002 [facility]-Pneumococcal Vaccine: 50 + Years (1 of 1 - PCV) 2002 [facility]-Zoster Vaccines (1 of 2) 2002 RKD-HCMKA-29 Vaccine (1 - 20 25-26 season) 2025 [facility]-Influenza Vaccine (#1) 2025 [facility]-RSV Vaccine: 60+ Years o r (1 - 1-dose 75+ series) 11/03/2027 HPV Vaccines (No Doses Required) Completed [facility]-HIB Vaccines Aged Out No longer e ligible based on patient's age to complete this topic [facility]-Hepatitis A Vaccines Aged Out No longer eligible based on patient's age to complete this topic [facility]-IPV Vaccines Aged Out No longer e ligible based on patient's age to complete this topic [facility]-Rotavirus Vaccines Aged Out No lo nger eligible based on patient's age to complete this topic Insurance [facility] MEDICARE Care Teams Coal Handling Supervisor Relationship Specialty Start Date End Date Reinier Campbell MD [address] [facility] [place] [id number] PCP - General 11/19/20
--- NOTE | 2025-06-23 08:45 | CA_ITS ---
APPROVED REPORT EXAM: Comprehensive 2D, Doppler, and color-flow Echocardiogram Heavy Equipment Engine Mechanic: Fadumo Wheeler, RCS, RVS Ht: 5 ft 3 in Wt: 152lbs BSA: 1.72 BP: 126/73 mmHg Indications: CABg,CAD, EF-%05/01, Smoker Echo Enhancing Agent Indication: NO IV ACCESS 2D Dimensions IVSd 1.07 cm F: 0.6-1.0 LVEF (Visual) 44.70 % PWd 0.99 cm F: 0.6 - 1.0 LA Volume 35.90 mL LVDd 4.40 cm F: 3.9 - 5.3 LA Volume Index 20.87 mL/m2 (M/F) 16-34 LVDs 3.43 cm F: 2.2 - 3.5 Left Atrium 2.79 cm F: 2.7 - 3.8 M-Mode Dimensions RVDd 2.07 cm (0.9-2.6) LA Diam 3.23 cm (1.9-4.0) LVDd 4.46 cm (3.5-5.7) LVDs 3.29 cm (3.5-5.7) IVSd 0.99 cm (0.6-1.1) PWd 0.85 cm (0.6-1.1) EF (Teich) 51.60% EPSs 0.94 cm FS 26.20% EDV (Teich) 90.50 mL TAPSE 1.15 (<1.7) ESV (Teich) 43.80 mL LV Diastology E Decel Time 167 (160-240 msec) E/A Ratio 0.84 MED A' 7.60 cm/s LAT A' 7.80 cm/s Aortic Valve JOSELIN Index 0.97 cm2/m2 AoV Peak Franck. 134.0 (50-130 cm/s) AO Peak GR. 7.20 mmHg AO Mean GR. 3.60 (<5 mmHg) AO VTI 31.3 (18-25 cm) JOSELIN (VTI) 1.71 (2.5-4.5 cm2) Mitral Valve MV A Velocity 77.0 (40-130 cm/s) E/A Ratio 0.84 Pulmonary Valve PV Peak Velocity 76.0 (50-150 cm/s) Tricuspid Valve TR P. Velocity 222.00 cm/s RAP Estimate 10.00 mmHg RVSP 29.70 mmHg Left Ventricle The left ventricle is normal size. Left ventricular systolic function is normal. The left ventricular ejection fraction is within the normal range. There is increased left ventricular wall thickness. There is normal LV segmental wall motion. Transmitral Doppler flow pattern suggests impaired LV relaxation. LVEF is 60% Right Ventricle The right ventricle is normal size. The right ventricular systolic function is normal. Atria The left atrium size is normal. The right atrium size is normal. There is no color Doppler evidence of interatrial shunt. Aortic Valve The aortic valve opens well. There is no hemodynamically significant aortic valvular stenosis. No aortic regurgitation is present. Mitral Valve The mitral valve is normal in structure. No evidence of mitral valve stenosis. Trace mitral regurgitation is present. Tricuspid Valve The tricuspid valve leaflets are thin and pliable. Mild tricuspid regurgitation. RVSP is 20-25 mmHg. Pulmonic Valve The pulmonary valve is grossly normal in structure. Trace pulmonic valve regurgitation is present. Great Vessels The aortic root is normal in size. IVC is normal in size and collapses >50% with inspiration. Pericardium There is no pericardial effusion. Other Information Study Quality: Fair Conclusion Normal biventricular systolic function. Mild TR. Electronically signed by : Deepthi Berumen MD 07/01/2025 20:11:18
== END 2025-06-23 23:59 | disposition home or self-care (01) ==
LOC: RT 08:08
PROVIDERS: PCP Family Medicine; Visit Provider Internal Medicine
DX: I25.10 Atherosclerotic heart disease of native coronary artery without angina pectoris (principal)
CPT/HCPCS: 93306